=== PATIENT | male | born 1955 | race Caucasian/White ===

== ENCOUNTER 2019-09-08 17:47 | Emergency (ER) | payer BC, OTHER ==
[~2019-09-08] VITALS: Ht 182 cm; Wt 86.3 kg
[2019-09-08 18:04] LABS: BASOPHILS % (AUTO) 0 % (0-10); EOSINOPHILS # (AUTO) 0.1 10^3/uL (0.0-0.3); EOSINOPHILS % (AUTO) 1 % (0-10); HEMATOCRIT 46 % (40-54); HEMOGLOBIN 15.5 G/DL (13.3-17.7); LYMPHOCYTES # (AUTO) 1.3 X 10^3 (1.0-4.0); LYMPHOCYTES % (AUTO) 14 % (12-44); MEAN CORPUSCULAR HEMOGLOBIN 32 PG (25-34); MEAN CORPUSCULAR HGB CONC 34 G/DL (32-36); MEAN CORPUSCULAR VOLUME 95 FL (80-99); MEAN PLATELET VOLUME 10.6 FL (7.4-10.4); MONOCYTES # (AUTO) 0.9 X 10^3 (0.0-1.0); MONOCYTES % (AUTO) 10 % (0-12); NEUTROPHILS # (AUTO) 7.3 X 10^3 (1.8-7.8); NEUTROPHILS % (AUTO) 76 % (42-75); PLATELET COUNT 236 10^3/uL (130-400); RED CELL DISTRIBUTION WIDTH 13.4 % (10.0-14.5); WHITE BLOOD COUNT 9.6 10^3/uL (4.3-11.0)
[2019-09-08] MEDS ORDERED: TICA90TA PO (18:05)
[2019-09-08] MEDS ORDERED: ASPI-999 PO (18:05)
[2019-09-08] MEDS ORDERED: ESCI10TA55 PO (18:05)
[2019-09-08] MEDS ORDERED: ATOR20TA66 PO (18:05)
[2019-09-08 18:24] LABS: ALANINE AMINOTRANSFERASE 11 U/L (0-55); ALBUMIN 4.3 GM/DL (3.2-4.5); ALKALINE PHOSPHATASE 89 U/L (40-136); BILIRUBIN,TOTAL 0.9 MG/DL (0.1-1.0); BUN/CREATININE RATIO 13; CALCIUM 9.5 MG/DL (8.5-10.1); CARBON DIOXIDE 29 MMOL/L (21-32); CHLORIDE 106 MMOL/L (98-107); CREATININE SERUM 0.77 MG/DL (0.60-1.30); GFR ESTIMATED > 60; GLUCOSE 98 MG/DL (70-105); MAGNESIUM 2.2 MG/DL (1.6-2.4); POTASSIUM 3.8 MMOL/L (3.6-5.0); SODIUM 142 MMOL/L (135-145); TOTAL PROTEIN 6.8 GM/DL (6.4-8.2)
--- NOTE | 2019-09-08 18:27 | Diagnostic Imaging Report ---
EXAMINATION: Chest (PA and lateral). CLINICAL INDICATION: 63-year-old male, multiple falls, dizziness. Difficulty speaking. COMPARISON: None. FINDINGS: Heart size and mediastinal contours are unremarkable. There is no identified pneumothorax. There is no pleural effusion. There is no identified focal airspace consolidation. IMPRESSION: No identified acute cardiopulmonary abnormality. Dictated by: Dictated on workstation # [id number]
[2019-09-08] MEDS ORDERED: LACTATED RINGERS 1,000 ML IV ONE (18:30)
--- NOTE | 2019-09-08 18:38 | ED General ---
General Chief Complaint: Neuro-Stroke Like Symptoms Stated Complaint: CONFUSED, DROPPING ITEMS, WEAK, DIZZY Nursing Triage Note: PATIENTSTATES THAT TODAY HE HAS BEEN FALLING DOWN, DROPPING THINGS, CONFUSED. Nursing Sepsis Screen: No Definite Risk Source of Information: Patient, Family Exam Limitations: No Limitations History of Present Illness Date Seen by Provider: Sep 08, 2019 Time Seen by Provider: 18:15 Initial Comments Here with report of generalized weakness, has fallen a couple times, got some steps today and had periods of confusion. All of this is been worsening over the past couple weeks although worse over the last couple of days. Started with illness that was diarrheal related and he states he got quite dehydrated. A little better and diarrhea has stopped but now has weakness. He cannot identify any one specific area. Also has had some dizziness that he describes as vertigo. States that he has benign positional vertigo and that's intermittent and long- standing. Denies nausea, vomiting, chest pain or breathing problems. He smokes cigarettes. His states he section to a little better right now but definitely was having more problems earlier this evening. Timing/Duration: 1 Week, Changing Over Time, Getting Worse Severity: Mild, Moderate Associated Systoms: No Chest Pain; Cough; No Diaphoresis, No Fever/Chills, No Nausea/Vomiting, No Shortness of Air; Weakness Allergies and Home Medications Allergies Coded Allergies: No Known Drug Allergies (Unverified , 09/08/19) Home Medications Ticagrelor 90 Mg Tablet, 90 MG PO BID, (Reported) Patient Home Medication List Home Medication List Reviewed: Yes Review of Systems Review of Systems Constitutional: see HPI; No chills, No fever EENTM: No ear pain, No nose congestion, No throat pain Respiratory: cough; No short of breath Cardiovascular: No chest pain, No edema Gastrointestinal: see HPI Genitourinary: no symptoms reported Musculoskeletal: No back pain; muscle weakness; No neck pain Skin: no symptoms reported Psychiatric/Neurological: No Symptoms Reported All Other Systems Reviewed Negative Unless Noted: Yes Past Ldpvucy-Meqhnx-Omjahu Hx Past Med/Social Hx: Reviewed Nursing Past Med/Soc Hx Patient Social History Alcohol Use: Denies Use Recreational Drug Use: No Smoking Status: Current Everyday Smoker Type Used: Cigarettes 2nd Hand Smoke Exposure: Yes Recent Foreign Travel: No Contact w/Someone Who Travel: No Recent Infectious Disease Expo: No Recent Hopitalizations: No Physical Abuse: No Sexual Abuse: No Seasonal Allergies Seasonal Allergies: No Past Medical History Surgeries: Yes Coronary Stent, Vascular Surgery Respiratory: No Cardiac: Yes Coronary Artery Disease Neurological: Yes Vertigo Genitourinary: No Gastrointestinal: No Musculoskeletal: No Endocrine: No Cancer: No Psychosocial: No Integumentary: No Blood Disorders: No Family Medical History Reviewed Nursing Family Hx Physical Exam Vital Signs Vital Signs - First Documented 09/08/19 17:51 Pulse 81 Resp 20 B/P (MAP) 160/103 (122) Capillary Refill : Less Than 3 Seconds Height, Weight, BMI Height: '" Weight: lbs. oz. kg; 26.00 BMI Method: General Appearance: No Apparent Distress, WD/WN HEENT: PERRL/EOMI, Pharynx Normal Neck: Non Tender, Supple Respiratory: Lungs Clear, Normal Breath Sounds Cardiovascular: Regular Rate, Rhythm, No Murmur Gastrointestinal: Non Tender, Soft Back: Normal Inspection, No CVA Tenderness, No Vertebral Tenderness Extremity: Normal Range of Motion, Non Tender Neurologic/Psychiatric: Alert, Oriented x3, Normal Mood/Affect, cylinder grinder II-XII Norm as Tested, Other (no pronator drift to upper or lower extremities. Finger to nose appropriate but somewhat shaky on the left arm. [id number] appropriate bilateral. Sensations intact and equal throughout. Does have incomplete extension of the left hand at the wrist but has equal school cleaner strength bilateral.) Skin: Normal Color, Warm/Dry Progress/Results/Core Measures Suspected Sepsis Recent Fever Within 48 Hours: No Infection Criteria Present: None New/Unexplained Altered Menta: No Sepsis Screen: No Definite Risk SIRS Temperature: Pulse: 81 Respiratory Rate: 20 Laboratory Tests 09/08/19 18:00: White Blood Count 9.6 Blood Pressure 160 /103 Mean: 122 Laboratory Tests 09/08/19 18:00: Creatinine 0.77, Platelet Count 236, Total Bilirubin 0.9 Results/Orders Lab Results Laboratory Tests Test 09/08/19 18:00 09/08/19 18:05 09/08/19 19:39 Range/Units White Blood Count 9.6 4.3-11.0 10^3/uL Red Blood Count 4.86 4.35-5.85 10^6/uL Hemoglobin 15.5 13.3-17.7 G/DL Hematocrit 46 40-54 % Mean Corpuscular Volume 95 80-99 FL Mean Corpuscular Hemoglobin 32 25-34 PG Mean Corpuscular Hemoglobin Concent 34 32-36 G/DL Red Cell Distribution Width 13.4 10.0-14.5 % Platelet Count 236 130-400 10^3/uL Mean Platelet Volume 10.6 H 7.4-10.4 FL Neutrophils (%) (Auto) 76 H 42-75 % Lymphocytes (%) (Auto) 14 12-44 % Monocytes (%) (Auto) 10 0-12 % Eosinophils (%) (Auto) 1 0-10 % Basophils (%) (Auto) 0 0-10 % Neutrophils # (Auto) 7.3 1.8-7.8 X 10^3 Lymphocytes # (Auto) 1.3 1.0-4.0 X 10^3 Monocytes # (Auto) 0.9 0.0-1.0 X 10^3 Eosinophils # (Auto) 0.1 0.0-0.3 10^3/uL Basophils # (Auto) 0.0 0.0-0.1 10^3/uL Sodium Level 142 135-145 MMOL/L Potassium Level 3.8 3.6-5.0 MMOL/L Chloride Level 106 98-107 MMOL/L Carbon Dioxide Level 29 21-32 MMOL/L Anion Gap 7 5-14 MMOL/L Blood Urea Nitrogen 10 7-18 MG/DL Creatinine 0.77 0.60-1.30 MG/DL Estimat Glomerular Filtration Rate > 60 BUN/Creatinine Ratio 13 Glucose Level 98 70-105 MG/DL Calcium Level 9.5 8.5-10.1 MG/DL Corrected Calcium 9.3 8.5-10.1 MG/DL Magnesium Level 2.2 1.6-2.4 MG/DL Total Bilirubin 0.9 0.1-1.0 MG/DL Aspartate Amino Transf (AST/SGOT) 13 5-34 U/L Alanine Aminotransferase (ALT/SGPT) 11 0-55 U/L Alkaline Phosphatase 89 40-136 U/L Total Protein 6.8 6.4-8.2 GM/DL Albumin 4.3 3.2-4.5 GM/DL Glucometer 96 70-110 MG/DL My Orders Orders - PEEWEE ARREGUIN MD Lactated Ringers (Lr 1000 Ml Iv Solution (09/08/19 18:30) Ct Head Wo-R/O Stroke (09/08/19 18:30) Dexamethasone Injection (Decadron Inject (09/08/19 19:30) Medications Given in ED Current Medications Medications Dose Ordered Sig/Kalpana Route Start Time Stop Time Status Last Admin Dose Admin Dexamethasone Sodium Phosphate 10 mg ONCE ONCE IV 09/08/19 19:30 09/08/19 19:31 DC 09/08/19 19:38 10 MG Lactated Ringer's 1,000 ml @ 0 mls/hr Q0M ONCE IV 09/08/19 18:30 09/08/19 18:31 DC 09/08/19 18:39 1,000 MLS/HR Vital Signs/I&O 09/08/19 17:51 Pulse 81 Resp 20 B/P (MAP) 160/103 (122) Capillary Refill : Less Than 3 Seconds Blood Pressure Mean: 122 POS Point of Care Testing Finger Stick Blood Glucose: 96 Blood Glucose Action Taken: RN notified Progress Note : Progress Note Seen and evaluated. IV, labs, EKG, chest x-ray, UA ordered. LR 500 mL bolus and then TKO, and CT head ordered. Stroke screen done by me due to presenting complaints although stroke not high on differential. Stroke scale is 0. We will get CT due to global weakness and falls. 1911: Radiology notified me about mass on CT. I did discuss this with the patient and his . He will need evaluation at tertiary center and [facility] his closest with capability needed for this type of finding/concern. I will initiate contact with them. I have asked for those films to be transmitted via cloud to .1914: Initiated transfer proceedings. Initiated contact with the triage line him transfer nurse. 1925: [facility] is at capacity and may be delayed on transfer but the triage nurse will begin proceedings. I did speak with Dr. Staples and he is recommending going ahead and given Decadron 10 mg IV. This was ordered. I did have discussion with the family regarding timeframes and transfer anticipation. 1955: Triage nurse called back and I do have an accepting physician although we still don't have a bed. They are working on bed space and will call me back. I did let her know that I went ahead and gave the Decadron and she will pass it on. 2005: I have discussed with the material handler 1st shift regarding the need for transfer. We have crews out of counts include 234 beds at the [facility] already and transfer could be quite delayed from [facility]. He is recommending that we initiate trying to find alternative transport. This will be started but we are still waiting for a bed. In talking with the triage nurse earlier, she had anticipated at least 45 minutes to an hour before we were able to get information on that. That will be fine. I did discuss all this with the patient and family verbalize understanding and he is overall doing okay. Monitor patient. 2009: [facility] has stated they will be able to transport when bed is available. ECG Initial ECG Impression Date: Sep 08, 2019 Initial ECG Impression Time: 17:57 Initial ECG Rate: 82 Initial ECG Rhythm: Normal Sinus Initial ECG Impression: Normal Initial ECG Comparisson: No Previous ECG Available Comment Sinus rhythm with normal axis. No evidence of ST elevation NE. No previous for comparison. Interpreted by me. Diagnostic Imaging Diagonstic Imaging: Xray Plain Films/CT/US/NM/MRI: chest Comments [facility] POS [place], [place] POS NAME: NIKI HERNANDEZ [facility] REC#: [id number] PT STATUS: REG ER : 1955 PHYSICIAN: KERI GERARDO MD ADMIT DATE: 09/08/19/ER Signed POSDate of Exam:09/08/19 CHEST PA/LAT (2 VIEW) EXAMINATION: Chest (PA and lateral). CLINICAL INDICATION: 63-year-old male, multiple falls, dizziness. Difficulty speaking. COMPARISON: None. FINDINGS: Heart size and mediastinal contours are unremarkable. There is no identified pneumothorax. There is no pleural effusion. There is no identified focal airspace consolidation. IMPRESSION: No identified acute cardiopulmonary abnormality. Dictated by: Dictated on workstation # [id number] Dict: 09/08/191817 Trans: 09/08/191828 [facility] [id number] Interpreted by: DIDI AGUILAR MD Electronically signed by: DIDI AGUILAR MD 09/08/191828 Reviewed: Reviewed by Me Diagonstic Imaging: CT Plain Films/CT/US/NM/MRI: head Comments NAME: NIKI HERNANDEZ MED REC#: [id number] PT STATUS: REG ER : 1955 PHYSICIAN: PEEWEE ARREGUIN MD ADMIT DATE: 09/08/19/ER Draft POSDate of Exam:09/08/19 CT HEAD WO-R/O STROKE PROCEDURE: CT head wo r/o stroke. TECHNIQUE: Multiple contiguous axial images were obtained through the brain without the use of intravenous contrast. Auto Exposure Controls were utilized during the CT exam to meet ALARA standards for radiation dose reduction. INDICATION: Dizzy, weakness. CORRELATION STUDY: None FINDINGS: There is extensive vasogenic edema through the central aspect of the right cerebral hemisphere. This appears most pronounced over the temporal lobes as well as through the region of basal ganglia but extending into the frontal and parietal lobes. There is suggestion of more focal approximately 4.2 x 3.6 cm mass within the posterior lateral aspect of the right temporal lobe. This is of heterogeneous density. There is localized mass effect. Complete loss of majority of the sulci pattern of the right cerebral hemisphere. There is approximately 14 mm of right to left shift with complete effacement of the right lateral ventricle and effacement of the right basilar cisterns. IMPRESSION: 1. Findings suggestive of approximately 4 cm mass at the posterior superior right temporal lobe with rather extensive adjacent surrounding vasogenic edema. There is resultant mass effect with right to left midline shift. Follow-up with contrast-enhanced MRI would be recommended. CRITICAL FINDINGS Findings telephoned to the [place] emergency department, 7:01 PM. 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 Marley accepting. Pending bed assignment. Method of Transfer: EMS Departure-Patient Inst. Referrals: LIBORIO WONG MD (PCP/Family) Primary Care Physician PEEWEE ARREGUIN MD Sep 08, 2019 18:38 POS
--- NOTE | 2019-09-08 18:57 | NUR ---
REPORT GIVEN TO Shekhar ANNE.
--- NOTE | 2019-09-08 19:09 | Diagnostic Imaging Report ---
PROCEDURE: CT head wo r/o stroke. TECHNIQUE: Multiple contiguous axial images were obtained through the brain without the use of intravenous contrast. Auto Exposure Controls were utilized during the CT exam to meet ALARA standards for radiation dose reduction. INDICATION: Dizzy, weakness. CORRELATION STUDY: None FINDINGS: There is extensive vasogenic edema through the central aspect of the right cerebral hemisphere. This appears most pronounced over the temporal lobes as well as through the region of basal ganglia but extending into the frontal and parietal lobes. There is suggestion of more focal approximately 4.2 x 3.6 cm mass within the posterior lateral aspect of the right temporal lobe. This is of heterogeneous density. There is localized mass effect. Complete loss of majority of the sulci pattern of the right cerebral hemisphere. There is approximately 14 mm of right to left shift with complete effacement of the right lateral ventricle and effacement of the right basilar cisterns. IMPRESSION: 1. Findings suggestive of approximately 4 cm mass at the posterior superior right temporal lobe with rather extensive adjacent surrounding vasogenic edema. There is resultant mass effect with right to left midline shift. Follow-up with contrast-enhanced MRI would be recommended. CRITICAL FINDINGS Findings telephoned to the [place] emergency department, 7:01 PM. Dictated by: Dictated on workstation # [id number]
[2019-09-08] MEDS ORDERED: DEXAMETHASONE 10 MG/ML (DECADRON) 1 ML VIAL IV ONE (19:30)
--- NOTE | 2019-09-08 19:39 | NUR ---
Pt assisted to side of bed to use urinal. Pt tolerated activity well. Pt voiced no more needs at this time.
[2019-09-08 19:51] LABS: BILIRUBIN,URINE NEGATIVE (NEGATIVE); CLARITY,URINE CLEAR; COLOR,URINE DARK YELLOW; GLUCOSE, URINE (UA) NEGATIVE (NEGATIVE); KETONES,URINE TRACE (NEGATIVE); LEUKOCYTE ESTERASE ,URINE NEGATIVE (NEGATIVE); NITRITE,URINE NEGATIVE (NEGATIVE); PH,URINE 6.5 (5-9); PROTEIN,URINE NEGATIVE (NEGATIVE)
--- NOTE | 2019-09-08 20:31 | NUR ---
Room assignment recie[facility] at [facility]
[2019-09-08 20:38] LABS: BACTERIA,URINE TRACE /HPF; RBC,URINE 0-2 /HPF; WBC,URINE 0-2 /HPF
--- NOTE | 2019-09-08 20:58 | NUR ---
[facility] accepted transfer. Pt and pt family notified of update.
[2019-09-09 00:01] VITALS: BP 141/86
== END 2019-09-09 00:02 | disposition short-term general hospital (02) ==
LOC: ER 17:50
DX: D49.6 Neoplasm of unspecified behavior of brain (principal); I25.10 Atherosclerotic heart disease of native coronary artery without angina pectoris; F17.210 Nicotine dependence, cigarettes, uncomplicated; Z95.5 Presence of coronary angioplasty implant and graft
CPT/HCPCS: 36415; 70450; 71046; 80053; 81000; 82962; 83735; 85025; 93005; 96361; 96374

== ENCOUNTER → 2019-10-19 | Outpatient (CLI) | payer BC ==
[~2019-10-19] MED LIST: ASPI-999 PO; ATOR20TA66 PO; ESCI10TA55 PO; TICA90TA PO
== END ==
LOC: ONC 15:32
PROVIDERS: ATTEND Internal Medicine Cardiovascular Disease
DX: C71.2 Malignant neoplasm of temporal lobe (principal); Z72.0 Tobacco use; Z22.7 Latent tuberculosis; Z84.89 Family history of other specified conditions; Z98.890 Other specified postprocedural states

== ENCOUNTER 2019-10-25 05:45 | Emergency (ER) | payer BC ==
[~2019-10-25] VITALS: Ht 182.8 cm; Wt 88.9 kg
[2019-10-25 06:15] LABS: BASOPHILS % (AUTO) 0 % (0-10); EOSINOPHILS # (AUTO) 0.1 10^3/uL (0.0-0.3); EOSINOPHILS % (AUTO) 1 % (0-10); HEMATOCRIT 44 % (40-54); HEMOGLOBIN 14.6 G/DL (13.3-17.7); LYMPHOCYTES % (AUTO) 18 % (12-44); MEAN CORPUSCULAR HEMOGLOBIN 32 PG (25-34); MEAN CORPUSCULAR HGB CONC 33 G/DL (32-36); MEAN CORPUSCULAR VOLUME 99 FL (80-99); MEAN PLATELET VOLUME 10.5 FL (7.4-10.4); MONOCYTES % (AUTO) 9 % (0-12); NEUTROPHILS # (AUTO) 7.9 X 10^3 (1.8-7.8); NEUTROPHILS % (AUTO) 71 % (42-75); PLATELET COUNT 197 10^3/uL (130-400); RED CELL DISTRIBUTION WIDTH 14.2 % (10.0-14.5); WHITE BLOOD COUNT 11.1 10^3/uL (4.3-11.0)
[2019-10-25] MEDS ORDERED: KETOROLAC 30 MG/ML VIAL IVP ONE (06:15)
[2019-10-25] MEDS ORDERED: ONDANSETRON 4 MG/2 ML (SDV) Z0FRAN IVP ONE (06:15)
[2019-10-25] MEDS ORDERED: NS IV 1000 ML 1,000 ML IV SCH (06:15)
--- NOTE | 2019-10-25 06:17 | ED Abdominal Pain ---
General Chief Complaint: Abdominal/GI Problems Stated Complaint: ABDOMINAL PAIN/VOMITING Nursing Triage Note: Patient states that he began having severe abdominal pain with nausea and vomiting at approximately 0315 this AM. Patient states that they did find a 3.9 cm abdominal aortic aneurysm. He also states that he is supposed to start chemo and radiation on 10-28-2019 for a cancerous tumor they found. He had a brain tumor removed on 09-14-19. Patient rates his pain 10 and his pain is on the left side of his abdomen. Sepsis Screen: No Definite Risk History of Present Illness Date Seen by Provider: Oct 25, 2019 Time Seen by Provider: 06:00 Initial Comments Patient's sudden onset of abdominal pain about 3:30 this morning previous history of kidney stone pain like this does have a history of an aortic aneurysm 3.9 cm also glioblastoma of the head stent's smoker nondiabetic is hypertensive Timing/Duration: 1-3 Hours Severity/Quality: Severe Location: LLQ Radiation: Groin Activities at Onset: None Modifying Factors: Worsens With Movement, Worsens With Vomiting Associated Symptoms: No Fever/Chills; Fatigue, Nausea/Vomiting, Weakness Allergies and Home Medications Allergies Coded Allergies: midazolam (Verified Allergy, Unknown, 10/25/19) Home Medications Ticagrelor 90 Mg Tablet, 90 MG PO BID, (Reported) Patient Home Medication List Home Medication List Reviewed: Yes Review of Systems Review of Systems Constitutional: No chills, No fever EENTM: No Blurred Vision, No Double Vision Respiratory: Denies Cough, Denies Shortness of Air Cardiovascular: Denies Chest Pain, Denies Irregular Heart Rate Gastrointestinal: Abdominal Pain; Denies Diarrhea; Nausea, Vomiting Genitourinary: Denies Burning, Denies Hematuria Musculoskeletal: No back pain, No joint pain, No joint swelling Skin: No lesions, No rash Past Iodpumg-Qwxnno-Casjzh Hx Past Med/Social Hx: Reviewed Nursing Past Med/Soc Hx Patient Social History Alcohol Use: Denies Use Recreational Drug Use: No Smoking Status: Current Everyday Smoker Type Used: Cigarettes 2nd Hand Smoke Exposure: Yes Recent Foreign Travel: No Contact w/Someone Who Travel: No Recent Infectious Disease Expo: No Recent Hopitalizations: No Physical Abuse: No Sexual Abuse: No Mistreated: No Fear: No Seasonal Allergies Seasonal Allergies: No Past Medical History Surgeries: Yes (Brain Tumor Removed 09-14-19, Cardiac Stent X5) Coronary Stent, Vascular Surgery Respiratory: No Cardiac: Yes (TX X2) Coronary Artery Disease, Heart Attack Neurological: Yes Vertigo Genitourinary: Yes Kidney Stones Gastrointestinal: No Musculoskeletal: No Endocrine: No HEENT: No Cancer: Yes Brain What Type of Treatment Did You: Chemotherapy, Radiation Supposed to start chemo/radiation 10-28-2019 Psychosocial: No Integumentary: No Blood Disorders: No Physical Exam Vital Signs Vital Signs - First Documented 10/25/19 05:51 Temp 36.7 Pulse 73 Resp 22 B/P (MAP) 219/103 (141) Pulse Ox 99 O2 Delivery Room Air Capillary Refill : Less Than 3 Seconds Height/Weight/BMI Height: '" Weight: lbs. oz. kg; 26.00 BMI Method: General Appearance: WD/WN, moderate distress HEENT: TMs normal, pharynx normal Neck: non-tender, supple Respiratory: lungs clear, no respiratory distress Cardiovascular: regular rate, rhythm, no murmur Gastrointestinal: No no pulsatile mass; abnormal bowel sounds (diminished); No guarding, No rebound; tenderness Extremities: normal range of motion, no pedal edema Back: No no CVA tenderness, No muscle spasm Skin: normal color, warm/dry Progress/Results/Core Measures Results/Orders Lab Results Laboratory Tests Test 10/25/19 05:57 10/25/19 06:18 Range/Units White Blood Count 11.1 H 4.3-11.0 10^3/uL Red Blood Count 4.50 4.35-5.85 10^6/uL Hemoglobin 14.6 13.3-17.7 G/DL Hematocrit 44 40-54 % Mean Corpuscular Volume 99 80-99 FL Mean Corpuscular Hemoglobin 32 25-34 PG Mean Corpuscular Hemoglobin Concent 33 32-36 G/DL Red Cell Distribution Width 14.2 10.0-14.5 % Platelet Count 197 130-400 10^3/uL Mean Platelet Volume 10.5 H 7.4-10.4 FL Neutrophils (%) (Auto) 71 42-75 % Lymphocytes (%) (Auto) 18 12-44 % Monocytes (%) (Auto) 9 0-12 % Eosinophils (%) (Auto) 1 0-10 % Basophils (%) (Auto) 0 0-10 % Neutrophils # (Auto) 7.9 H 1.8-7.8 X 10^3 Lymphocytes # (Auto) 2.0 1.0-4.0 X 10^3 Monocytes # (Auto) 1.0 0.0-1.0 X 10^3 Eosinophils # (Auto) 0.1 0.0-0.3 10^3/uL Basophils # (Auto) 0.0 0.0-0.1 10^3/uL Neutrophils % (Manual) 73 % Lymphocytes % (Manual) 17 % Monocytes % (Manual) 8 % Eosinophils % (Manual) 2 % Sodium Level 142 135-145 MMOL/L Potassium Level 3.8 3.6-5.0 MMOL/L Chloride Level 105 98-107 MMOL/L Carbon Dioxide Level 22 21-32 MMOL/L Anion Gap 15 H 5-14 MMOL/L Blood Urea Nitrogen 19 H 7-18 MG/DL Creatinine 0.88 0.60-1.30 MG/DL Estimat Glomerular Filtration Rate > 60 BUN/Creatinine Ratio 22 Glucose Level 129 H 70-105 MG/DL Calcium Level 9.1 8.5-10.1 MG/DL Corrected Calcium 9.0 8.5-10.1 MG/DL Total Bilirubin 0.5 0.1-1.0 MG/DL Aspartate Amino Transf (AST/SGOT) 17 5-34 U/L Alanine Aminotransferase (ALT/SGPT) 13 0-55 U/L Alkaline Phosphatase 71 40-136 U/L Total Protein 6.4 6.4-8.2 GM/DL Albumin 4.1 3.2-4.5 GM/DL Urine Color YELLOW Urine Clarity CLEAR Urine pH 7.0 5-9 Urine Specific [place] 1.020 1.016-1.022 Urine Protein NEGATIVE NEGATIVE Urine Glucose (UA) NEGATIVE NEGATIVE Urine Ketones TRACE H NEGATIVE Urine Nitrite NEGATIVE NEGATIVE Urine Bilirubin NEGATIVE NEGATIVE Urine Urobilinogen 0.2 < = 1.0 MG/DL Urine Leukocyte Esterase NEGATIVE NEGATIVE Urine RBC (Auto) TRACE-I NEGATIVE Urine RBC 5-10 H /HPF Urine WBC NONE /HPF Urine Crystals NONE /LPF Urine Bacteria NEGATIVE /HPF Urine Casts NONE /LPF Urine Mucus NEGATIVE /LPF Urine Culture Indicated NO My Orders Orders - CLARITA MUÑIZ JR, MD Cbc And Manual Diff (10/25/19 06:10) Comprehensive Metabolic Panel (10/25/19 06:10) Ua Culture If Indicated (1/6/20 06:10) Ns Iv 1000 Ml (Sodium Chloride 0.9%) (10/25/19 06:15) Ketorolac Injection (Toradol Injection) (10/25/19 06:15) Ondansetron Injection (Zofran Injectio (10/25/19 06:15) Ct Abd/Pelvis Wo(Kidney Stone) (10/25/19 06:11) Medications Given in ED Current Medications Medications Dose Ordered Sig/Kalpana Route Start Time Stop Time Status Last Admin Dose Admin Ketorolac Tromethamine 30 mg ONCE ONCE IVP 10/25/19 06:15 10/25/19 06:16 DC 10/25/19 06:17 30 MG Ondansetron HCl 4 mg ONCE ONCE IVP 10/25/19 06:15 10/25/19 06:16 DC 10/25/19 06:17 4 MG Vital Signs/I&O 10/25/19 05:51 Temp 36.7 Pulse 73 Resp 22 B/P (MAP) 219/103 (141) Pulse Ox 99 O2 Delivery Room Air Blood Pressure Mean: 141 Progress Progress Note : Time: 07:23 Progress Note Patient became pain-free shortly after the Toradol small stone at UVJ which obviously is passed and the patient is without problem Departure Impression Primary Impression: Kidney stone Disposition: 01 HOME, SELF-CARE Condition: Stable Departure-Patient Inst. Referrals: SELF,LIBORIO DE JESUS (PCP/Family) Primary Care Physician Patient Instructions: Kidney Stones in Adults CLARITA MUÑIZ JR, MD Oct 25, 2019 06:17
[2019-10-25 06:23] LABS: ALANINE AMINOTRANSFERASE 13 U/L (0-55); ALBUMIN 4.1 GM/DL (3.2-4.5); ALKALINE PHOSPHATASE 71 U/L (40-136); BILIRUBIN,TOTAL 0.5 MG/DL (0.1-1.0); BUN/CREATININE RATIO 22; CALCIUM 9.1 MG/DL (8.5-10.1); CARBON DIOXIDE 22 MMOL/L (21-32); CHLORIDE 105 MMOL/L (98-107); CREATININE SERUM 0.88 MG/DL (0.60-1.30); GFR ESTIMATED > 60; GLUCOSE 129 MG/DL (70-105); POTASSIUM 3.8 MMOL/L (3.6-5.0); SODIUM 142 MMOL/L (135-145); TOTAL PROTEIN 6.4 GM/DL (6.4-8.2)
[2019-10-25 06:24] LABS: EOSINOPHILS % (MANUAL) 2 %; LYMPHOCYTES % (MANUAL) 17 %; MONOCYTES % (MANUAL) 8 %; NEUTROPHILS % (MANUAL) 73 %
[2019-10-25 06:29] LABS: BACTERIA,URINE NEGATIVE /HPF; BILIRUBIN,URINE NEGATIVE (NEGATIVE); CLARITY,URINE CLEAR; COLOR,URINE YELLOW; GLUCOSE, URINE (UA) NEGATIVE (NEGATIVE); KETONES,URINE TRACE (NEGATIVE); LEUKOCYTE ESTERASE ,URINE NEGATIVE (NEGATIVE); NITRITE,URINE NEGATIVE (NEGATIVE); PROTEIN,URINE NEGATIVE (NEGATIVE)
--- NOTE | 2019-10-25 06:55 | NUR ---
Report from Jacinta ANNE. Pending results. Improvement of pain.
--- NOTE | 2019-10-25 07:07 | Diagnostic Imaging Report ---
PROCEDURE: CT urinary tract, rule out kidney stone. TECHNIQUE: Multiple contiguous axial images were obtained through the abdomen and pelvis without the use of intravenous contrast. Auto Exposure Controls were utilized during the CT exam to meet ALARA standards for radiation dose reduction. DATE: April 14, 2020. COMPARISON: None. INDICATION: 63-year-old male, left-sided abdominal pain. FINDINGS: There are limitations for evaluation of the abdominal organs, neoplastic processes, abscess, and limited evaluation of the vasculature relating to the lack of intravenous contrast. There is mild scarring in the right lower lobe and mild scarring and/or atelectasis in the left lower lobe. The additional visualized portions of the lung bases are clear. The heart is not enlarged. There is no pericardial effusion. The liver is unremarkable in size and contour. There is a 5 mm low-attenuation lesion in the liver on axial image 25 which is too small to characterize. There is a 5 mm low-attenuation lesion in the right lobe of the liver on axial image 44 too small to characterize. There is also a similar-appearing lesion in the right lobe of the liver on axial image 42 too small to characterize. The gallbladder is unremarkable. There is no intrahepatic or extrahepatic bile duct dilation. The main pancreatic duct is not abnormally dilated. Limited noncontrast evaluation of the pancreatic parenchyma is unremarkable. The spleen is normal in size. The adrenal glands are unremarkable. There are nonobstructing left renal stones measuring up to approximately 2 to 3 mm in size. There is a stone at the level of the left ureterovesical junction on axial image 121 which measures 3 mm in size. There is no philip left hydronephrosis. There is asymmetric left perinephric stranding. There is no right ureteral stone or right hydronephrosis. There is no pronounced wall thickening of the urinary bladder. There is diverticulosis without evidence of acute diverticulitis. The appendix is unremarkable. There is moderate to large volume stool in the right colon. There is no free intraperitoneal air. No drainable fluid collection. There is no sizable volume free pelvic fluid. There are atherosclerotic calcifications. There is aneurysmal dilation of the infrarenal abdominal aorta measuring up to 3.7 x 3.9 cm in diameter. There is no identified abnormally enlarged lymph node in the abdomen or pelvis which meets CT size criteria for adenopathy. There are multilevel degenerative changes of the spine. There is no identified acute bony abnormality. IMPRESSION: CT ABDOMEN AND PELVIS. 1. 3 mm stone at the left ureterovesical junction without philip left hydronephrosis. There is asymmetric left perinephric stranding. 2. Additional nonobstructing left renal stones. 3. Atherosclerotic calcifications with infrarenal abdominal aortic aneurysm measuring up to 3.7 x 3.9 cm in diameter. Dictated by: Dictated on workstation # [id number]
--- NOTE | 2019-10-25 07:20 | NUR ---
Dr to room to talk with patient.
[2019-10-25 07:35] VITALS: BP 160/100
[2019-10-25] MEDS ORDERED: DIVA250T2 PO (10:10)
[2019-10-25] MEDS ORDERED: ATOR40TA70 PO (10:10)
[2019-10-25] MEDS ORDERED: LISI10TA2 PO (10:10)
[2019-10-25] MEDS ORDERED: PANT40TA2 PO (10:10)
[2019-10-25] MEDS ORDERED: LEVE500T99 PO (10:10)
[2019-10-25] MEDS ORDERED: ONDA8TAB6 PO (10:10)
== END 2019-10-25 07:35 | disposition home or self-care (01) ==
LOC: EDUNIT# 05:45 → ER FS 05:48
DX: N20.0 Calculus of kidney (principal); I25.10 Atherosclerotic heart disease of native coronary artery without angina pectoris; I25.2 Old myocardial infarction; F17.210 Nicotine dependence, cigarettes, uncomplicated; Z88.8 Allergy status to other drugs, medicaments and biological substances; Z95.5 Presence of coronary angioplasty implant and graft
CPT/HCPCS: 36415; 74176; 80053; 81000; 85007; 85027; 96374; 96375

== ENCOUNTER 2019-12-09 10:35 | Outpatient (RCR) | payer BC ==
[2019-10-19 15:47] LABS: BASOPHILS % (AUTO) 0 % (0-10); EOSINOPHILS # (AUTO) 0.2 10^3/uL (0.0-0.3); EOSINOPHILS % (AUTO) 2 % (0-10); HEMATOCRIT 46 % (40-54); LYMPHOCYTES # (AUTO) 1.6 X 10^3 (1.0-4.0); LYMPHOCYTES % (AUTO) 21 % (12-44); MEAN CORPUSCULAR HEMOGLOBIN 32 PG (25-34); MEAN CORPUSCULAR HGB CONC 33 G/DL (32-36); MEAN CORPUSCULAR VOLUME 98 FL (80-99); MEAN PLATELET VOLUME 10.6 FL (7.4-10.4); MONOCYTES # (AUTO) 0.7 X 10^3 (0.0-1.0); MONOCYTES % (AUTO) 10 % (0-12); NEUTROPHILS # (AUTO) 4.9 X 10^3 (1.8-7.8); NEUTROPHILS % (AUTO) 67 % (42-75); PLATELET COUNT 193 10^3/uL (130-400); RED CELL DISTRIBUTION WIDTH 14.5 % (10.0-14.5); WHITE BLOOD COUNT 7.4 10^3/uL (4.3-11.0)
[2019-10-19 16:24] LABS: ALANINE AMINOTRANSFERASE 17 U/L (0-55); ALBUMIN 4.2 GM/DL (3.2-4.5); ALKALINE PHOSPHATASE 73 U/L (40-136); BILIRUBIN,TOTAL 0.8 MG/DL (0.1-1.0); BUN/CREATININE RATIO 20; CALCIUM 8.9 MG/DL (8.5-10.1); CARBON DIOXIDE 26 MMOL/L (21-32); CHLORIDE 106 MMOL/L (98-107); CREATININE SERUM 0.74 MG/DL (0.60-1.30); GFR ESTIMATED > 60; GLUCOSE 75 MG/DL (70-105); POTASSIUM 4.1 MMOL/L (3.6-5.0); SODIUM 142 MMOL/L (135-145); TOTAL PROTEIN 6.3 GM/DL (6.4-8.2)
[2019-11-10 11:18] LABS: BASOPHILS % (AUTO) 1 % (0-10); EOSINOPHILS # (AUTO) 0.1 10^3/uL (0.0-0.3); EOSINOPHILS % (AUTO) 2 % (0-10); HEMATOCRIT 47 % (40-54); HEMOGLOBIN 15.1 G/DL (13.3-17.7); LYMPHOCYTES # (AUTO) 1.1 X 10^3 (1.0-4.0); LYMPHOCYTES % (AUTO) 17 % (12-44); MEAN CORPUSCULAR HEMOGLOBIN 32 PG (25-34); MEAN CORPUSCULAR HGB CONC 32 G/DL (32-36); MEAN CORPUSCULAR VOLUME 99 FL (80-99); MONOCYTES # (AUTO) 0.6 X 10^3 (0.0-1.0); MONOCYTES % (AUTO) 8 % (0-12); NEUTROPHILS # (AUTO) 4.9 X 10^3 (1.8-7.8); NEUTROPHILS % (AUTO) 73 % (42-75); PLATELET COUNT 193 10^3/uL (130-400); RED CELL DISTRIBUTION WIDTH 14.6 % (10.0-14.5); WHITE BLOOD COUNT 6.7 10^3/uL (4.3-11.0)
[2019-11-10 11:44] LABS: BUN/CREATININE RATIO 14; CARBON DIOXIDE 25 MMOL/L (21-32); CHLORIDE 108 MMOL/L (98-107); CREATININE SERUM 0.87 MG/DL (0.60-1.30); GFR ESTIMATED > 60; GLUCOSE 96 MG/DL (70-105); POTASSIUM 4.1 MMOL/L (3.6-5.0); SODIUM 142 MMOL/L (135-145)
[2019-11-18 08:53] LABS: BASOPHILS % (AUTO) 1 % (0-10); EOSINOPHILS # (AUTO) 0.2 10^3/uL (0.0-0.3); EOSINOPHILS % (AUTO) 4 % (0-10); HEMATOCRIT 48 % (40-54); HEMOGLOBIN 15.9 G/DL (13.3-17.7); LYMPHOCYTES # (AUTO) 1.1 X 10^3 (1.0-4.0); LYMPHOCYTES % (AUTO) 20 % (12-44); MEAN CORPUSCULAR HEMOGLOBIN 33 PG (25-34); MEAN CORPUSCULAR HGB CONC 33 G/DL (32-36); MEAN CORPUSCULAR VOLUME 99 FL (80-99); MEAN PLATELET VOLUME 11.2 FL (7.4-10.4); MONOCYTES # (AUTO) 0.6 X 10^3 (0.0-1.0); MONOCYTES % (AUTO) 11 % (0-12); NEUTROPHILS # (AUTO) 3.5 X 10^3 (1.8-7.8); NEUTROPHILS % (AUTO) 65 % (42-75); PLATELET COUNT 199 10^3/uL (130-400); RED CELL DISTRIBUTION WIDTH 14.5 % (10.0-14.5); WHITE BLOOD COUNT 5.4 10^3/uL (4.3-11.0)
[2019-11-18 09:16] LABS: ALANINE AMINOTRANSFERASE 19 U/L (0-55); ALBUMIN 4.2 GM/DL (3.2-4.5); ALKALINE PHOSPHATASE 64 U/L (40-136); BILIRUBIN,TOTAL 1.1 MG/DL (0.1-1.0); BUN/CREATININE RATIO 15; CALCIUM 9.1 MG/DL (8.5-10.1); CARBON DIOXIDE 23 MMOL/L (21-32); CHLORIDE 109 MMOL/L (98-107); CREATININE SERUM 0.81 MG/DL (0.60-1.30); GFR ESTIMATED > 60; GLUCOSE 86 MG/DL (70-105); POTASSIUM 4.4 MMOL/L (3.6-5.0); SODIUM 142 MMOL/L (135-145); TOTAL PROTEIN 6.4 GM/DL (6.4-8.2)
[2019-11-24 10:39] LABS: BASOPHILS % (AUTO) 1 % (0-10); EOSINOPHILS # (AUTO) 0.2 10^3/uL (0.0-0.3); EOSINOPHILS % (AUTO) 3 % (0-10); HEMATOCRIT 46 % (40-54); HEMOGLOBIN 14.9 G/DL (13.3-17.7); LYMPHOCYTES # (AUTO) 0.9 X 10^3 (1.0-4.0); LYMPHOCYTES % (AUTO) 15 % (12-44); MEAN CORPUSCULAR HEMOGLOBIN 32 PG (25-34); MEAN CORPUSCULAR HGB CONC 32 G/DL (32-36); MEAN CORPUSCULAR VOLUME 100 FL (80-99); MEAN PLATELET VOLUME 11.3 FL (7.4-10.4); MONOCYTES # (AUTO) 0.6 X 10^3 (0.0-1.0); MONOCYTES % (AUTO) 10 % (0-12); NEUTROPHILS # (AUTO) 4.2 X 10^3 (1.8-7.8); NEUTROPHILS % (AUTO) 72 % (42-75); PLATELET COUNT 198 10^3/uL (130-400); RED CELL DISTRIBUTION WIDTH 14.3 % (10.0-14.5); WHITE BLOOD COUNT 5.8 10^3/uL (4.3-11.0)
[2019-11-24 10:57] LABS: BUN/CREATININE RATIO 18; CALCIUM 8.7 MG/DL (8.5-10.1); CARBON DIOXIDE 27 MMOL/L (21-32); CHLORIDE 107 MMOL/L (98-107); CREATININE SERUM 0.83 MG/DL (0.60-1.30); GFR ESTIMATED > 60; GLUCOSE 92 MG/DL (70-105); POTASSIUM 4.3 MMOL/L (3.6-5.0); SODIUM 142 MMOL/L (135-145)
[2019-12-02 11:12] LABS: BASOPHILS % (AUTO) 1 % (0-10); EOSINOPHILS # (AUTO) 0.1 10^3/uL (0.0-0.3); EOSINOPHILS % (AUTO) 2 % (0-10); HEMATOCRIT 47 % (40-54); HEMOGLOBIN 15.3 G/DL (13.3-17.7); LYMPHOCYTES # (AUTO) 0.8 X 10^3 (1.0-4.0); LYMPHOCYTES % (AUTO) 12 % (12-44); MEAN CORPUSCULAR HEMOGLOBIN 32 PG (25-34); MEAN CORPUSCULAR HGB CONC 33 G/DL (32-36); MEAN CORPUSCULAR VOLUME 98 FL (80-99); MEAN PLATELET VOLUME 11.3 FL (7.4-10.4); MONOCYTES # (AUTO) 0.5 X 10^3 (0.0-1.0); MONOCYTES % (AUTO) 8 % (0-12); NEUTROPHILS % (AUTO) 78 % (42-75); PLATELET COUNT 167 10^3/uL (130-400); RED CELL DISTRIBUTION WIDTH 14.2 % (10.0-14.5); WHITE BLOOD COUNT 6.4 10^3/uL (4.3-11.0)
[2019-12-02 11:28] LABS: BUN/CREATININE RATIO 15; CALCIUM 8.9 MG/DL (8.5-10.1); CARBON DIOXIDE 27 MMOL/L (21-32); CHLORIDE 104 MMOL/L (98-107); CREATININE SERUM 0.78 MG/DL (0.60-1.30); GFR ESTIMATED > 60; GLUCOSE 105 MG/DL (70-105); POTASSIUM 4.1 MMOL/L (3.6-5.0); SODIUM 139 MMOL/L (135-145)
[2019-12-08 10:45] LABS: BASOPHILS % (AUTO) 1 % (0-10); EOSINOPHILS # (AUTO) 0.1 10^3/uL (0.0-0.3); EOSINOPHILS % (AUTO) 2 % (0-10); HEMATOCRIT 46 % (40-54); LYMPHOCYTES # (AUTO) 0.6 X 10^3 (1.0-4.0); LYMPHOCYTES % (AUTO) 11 % (12-44); MEAN CORPUSCULAR HEMOGLOBIN 32 PG (25-34); MEAN CORPUSCULAR HGB CONC 33 G/DL (32-36); MEAN CORPUSCULAR VOLUME 98 FL (80-99); MONOCYTES # (AUTO) 0.6 X 10^3 (0.0-1.0); MONOCYTES % (AUTO) 10 % (0-12); NEUTROPHILS # (AUTO) 4.4 X 10^3 (1.8-7.8); NEUTROPHILS % (AUTO) 77 % (42-75); PLATELET COUNT 169 10^3/uL (130-400); WHITE BLOOD COUNT 5.7 10^3/uL (4.3-11.0)
[2019-12-08 11:07] LABS: BUN/CREATININE RATIO 12; CALCIUM 8.7 MG/DL (8.5-10.1); CARBON DIOXIDE 26 MMOL/L (21-32); CHLORIDE 105 MMOL/L (98-107); CREATININE SERUM 0.81 MG/DL (0.60-1.30); GFR ESTIMATED > 60; GLUCOSE 103 MG/DL (70-105); POTASSIUM 3.9 MMOL/L (3.6-5.0); SODIUM 141 MMOL/L (135-145)
[~2019-12-09 10:35] MED LIST changes: +ATOR40TA70 PO; +DIVA250T2 PO; +LEVE500T99 PO; +LISI10TA2 PO; +ONDA8TAB6 PO; +PANT40TA2 PO
== END 2020-01-04 | disposition home or self-care (01) ==
LOC: ONC 10:35
PROVIDERS: ATTEND Internal Medicine Hematology & Oncology
DX: Z51.0 Encounter for antineoplastic radiation therapy (principal); C71.9 Malignant neoplasm of brain, unspecified; Z22.7 Latent tuberculosis; E78.00 Pure hypercholesterolemia, unspecified; I11.9 Hypertensive heart disease without heart failure; I51.9 Heart disease, unspecified; Z87.891 Personal history of nicotine dependence
CPT/HCPCS: 77300; 77301; 77334; 77336; 77338; 77386; 77470; 80048; 80053; 85025; 99204; 99213; 99214

== ENCOUNTER → 2020-01-27 | Outpatient (CLI) | payer BC ==
[2020-01-27 15:19] LABS: CHLORIDE 106 MMOL/L (98-107); POTASSIUM 3.9 MMOL/L (3.6-5.0); SODIUM 140 MMOL/L (135-145)
[2020-01-27 15:20] LABS: ALBUMIN 4.3 GM/DL (3.2-4.5)
[2020-01-27 15:21] LABS: CALCIUM 9.1 MG/DL (8.5-10.1); TRIGLYCERIDES 66 MG/DL (<150); VLDL CHOLESTEROL 13 MG/DL (5-40)
[2020-01-27 15:22] LABS: GLUCOSE 105 MG/DL (70-105); TOTAL PROTEIN 6.7 GM/DL (6.4-8.2)
[2020-01-27 15:23] LABS: CARBON DIOXIDE 24 MMOL/L (21-32)
[2020-01-27 15:24] LABS: BILIRUBIN,TOTAL 1.3 MG/DL (0.1-1.0)
[2020-01-27 15:26] LABS: ALKALINE PHOSPHATASE 78 U/L (40-136); CHOLESTEROL 149 MG/DL (< 200); CREATININE SERUM 0.89 MG/DL (0.60-1.30); GFR ESTIMATED > 60
[2020-01-27 15:27] LABS: BUN/CREATININE RATIO 13
[2020-01-27 15:28] LABS: HDL CHOLESTEROL 46 MG/DL (40-60)
[2020-01-27 15:29] LABS: ALANINE AMINOTRANSFERASE 21 U/L (0-55)
== END ==
LOC: LAB 14:33
PROVIDERS: ATTEND Internal Medicine Cardiovascular Disease
DX: I10 Essential (primary) hypertension (principal); E78.2 Mixed hyperlipidemia
CPT/HCPCS: 36415; 80053; 80061

== ENCOUNTER 2020-03-08 10:42 | Outpatient (RCR) | payer BC ==
[2020-01-05 15:44] LABS: BASOPHILS % (AUTO) 0 % (0-10); EOSINOPHILS # (AUTO) 0.1 10^3/uL (0.0-0.3); EOSINOPHILS % (AUTO) 1 % (0-10); HEMATOCRIT 45 % (40-54); HEMOGLOBIN 15.4 G/DL (13.3-17.7); LYMPHOCYTES # (AUTO) 0.8 X 10^3 (1.0-4.0); LYMPHOCYTES % (AUTO) 13 % (12-44); MEAN CORPUSCULAR HEMOGLOBIN 33 PG (25-34); MEAN CORPUSCULAR HGB CONC 35 G/DL (32-36); MEAN CORPUSCULAR VOLUME 96 FL (80-99); MEAN PLATELET VOLUME 10.4 FL (7.4-10.4); MONOCYTES # (AUTO) 0.7 X 10^3 (0.0-1.0); MONOCYTES % (AUTO) 10 % (0-12); NEUTROPHILS % (AUTO) 76 % (42-75); PLATELET COUNT 129 10^3/uL (130-400); RED CELL DISTRIBUTION WIDTH 13.3 % (10.0-14.5); WHITE BLOOD COUNT 6.5 10^3/uL (4.3-11.0)
[2020-01-05 16:01] LABS: ALANINE AMINOTRANSFERASE 15 U/L (0-55); ALBUMIN 4.2 GM/DL (3.2-4.5); ALKALINE PHOSPHATASE 67 U/L (40-136); BILIRUBIN,TOTAL 0.8 MG/DL (0.1-1.0); BUN/CREATININE RATIO 16; CALCIUM 9.1 MG/DL (8.5-10.1); CARBON DIOXIDE 28 MMOL/L (21-32); CHLORIDE 107 MMOL/L (98-107); CREATININE SERUM 0.91 MG/DL (0.60-1.30); GFR ESTIMATED > 60; GLUCOSE 87 MG/DL (70-105); POTASSIUM 3.9 MMOL/L (3.6-5.0); SODIUM 142 MMOL/L (135-145); TOTAL PROTEIN 6.6 GM/DL (6.4-8.2)
[2020-01-27 15:03] LABS: BASOPHILS % (AUTO) 0 % (0-10); EOSINOPHILS # (AUTO) 0.1 10^3/uL (0.0-0.3); EOSINOPHILS % (AUTO) 2 % (0-10); HEMATOCRIT 48 % (40-54); LYMPHOCYTES # (AUTO) 0.7 X 10^3 (1.0-4.0); LYMPHOCYTES % (AUTO) 10 % (12-44); MEAN CORPUSCULAR HEMOGLOBIN 33 PG (25-34); MEAN CORPUSCULAR HGB CONC 33 G/DL (32-36); MEAN CORPUSCULAR VOLUME 98 FL (80-99); MEAN PLATELET VOLUME 10.6 FL (7.4-10.4); MONOCYTES # (AUTO) 0.6 X 10^3 (0.0-1.0); MONOCYTES % (AUTO) 9 % (0-12); NEUTROPHILS # (AUTO) 5.1 X 10^3 (1.8-7.8); NEUTROPHILS % (AUTO) 79 % (42-75); PLATELET COUNT 146 10^3/uL (130-400); RED CELL DISTRIBUTION WIDTH 13.7 % (10.0-14.5); WHITE BLOOD COUNT 6.4 10^3/uL (4.3-11.0)
[2020-02-02 14:26] LABS: BASOPHILS % (AUTO) 0 % (0-10); EOSINOPHILS # (AUTO) 0.1 10^3/uL (0.0-0.3); EOSINOPHILS % (AUTO) 2 % (0-10); HEMATOCRIT 45 % (40-54); HEMOGLOBIN 15.1 G/DL (13.3-17.7); LYMPHOCYTES # (AUTO) 1.1 X 10^3 (1.0-4.0); LYMPHOCYTES % (AUTO) 19 % (12-44); MEAN CORPUSCULAR HEMOGLOBIN 33 PG (25-34); MEAN CORPUSCULAR HGB CONC 33 G/DL (32-36); MEAN CORPUSCULAR VOLUME 98 FL (80-99); MEAN PLATELET VOLUME 10.2 FL (7.4-10.4); MONOCYTES # (AUTO) 0.6 X 10^3 (0.0-1.0); MONOCYTES % (AUTO) 11 % (0-12); NEUTROPHILS % (AUTO) 68 % (42-75); PLATELET COUNT 163 10^3/uL (130-400); RED CELL DISTRIBUTION WIDTH 13.3 % (10.0-14.5); WHITE BLOOD COUNT 5.8 10^3/uL (4.3-11.0)
[2020-02-09 11:06] LABS: BASOPHILS % (AUTO) 0 % (0-10); EOSINOPHILS # (AUTO) 0.1 10^3/uL (0.0-0.3); EOSINOPHILS % (AUTO) 2 % (0-10); HEMATOCRIT 45 % (40-54); HEMOGLOBIN 14.8 G/DL (13.3-17.7); LYMPHOCYTES # (AUTO) 0.8 X 10^3 (1.0-4.0); LYMPHOCYTES % (AUTO) 14 % (12-44); MEAN CORPUSCULAR HEMOGLOBIN 33 PG (25-34); MEAN CORPUSCULAR HGB CONC 33 G/DL (32-36); MEAN CORPUSCULAR VOLUME 98 FL (80-99); MEAN PLATELET VOLUME 10.5 FL (7.4-10.4); MONOCYTES # (AUTO) 0.5 X 10^3 (0.0-1.0); MONOCYTES % (AUTO) 8 % (0-12); NEUTROPHILS # (AUTO) 4.1 X 10^3 (1.8-7.8); NEUTROPHILS % (AUTO) 75 % (42-75); PLATELET COUNT 127 10^3/uL (130-400); RED CELL DISTRIBUTION WIDTH 13.2 % (10.0-14.5); WHITE BLOOD COUNT 5.5 10^3/uL (4.3-11.0)
[2020-02-09 11:38] LABS: ALANINE AMINOTRANSFERASE 16 U/L (0-55); ALBUMIN 3.8 GM/DL (3.2-4.5); ALKALINE PHOSPHATASE 72 U/L (40-136); BILIRUBIN,TOTAL 0.7 MG/DL (0.1-1.0); BUN/CREATININE RATIO 19; CALCIUM 8.5 MG/DL (8.5-10.1); CARBON DIOXIDE 23 MMOL/L (21-32); CHLORIDE 108 MMOL/L (98-107); CREATININE SERUM 0.79 MG/DL (0.60-1.30); GFR ESTIMATED > 60; GLUCOSE 107 MG/DL (70-105); SODIUM 141 MMOL/L (135-145); TOTAL PROTEIN 5.9 GM/DL (6.4-8.2)
[2020-02-23 13:13] LABS: BASOPHILS % (AUTO) 0 % (0-10); EOSINOPHILS # (AUTO) 0.1 10^3/uL (0.0-0.3); EOSINOPHILS % (AUTO) 1 % (0-10); HEMATOCRIT 44 % (40-54); HEMOGLOBIN 14.4 G/DL (13.3-17.7); LYMPHOCYTES # (AUTO) 0.8 X 10^3 (1.0-4.0); LYMPHOCYTES % (AUTO) 12 % (12-44); MEAN CORPUSCULAR HEMOGLOBIN 32 PG (25-34); MEAN CORPUSCULAR HGB CONC 33 G/DL (32-36); MEAN CORPUSCULAR VOLUME 97 FL (80-99); MEAN PLATELET VOLUME 10.4 FL (7.4-10.4); MONOCYTES # (AUTO) 0.6 X 10^3 (0.0-1.0); MONOCYTES % (AUTO) 8 % (0-12); NEUTROPHILS # (AUTO) 5.6 X 10^3 (1.8-7.8); NEUTROPHILS % (AUTO) 79 % (42-75); PLATELET COUNT 145 10^3/uL (130-400); RED CELL DISTRIBUTION WIDTH 13.4 % (10.0-14.5); WHITE BLOOD COUNT 7.1 10^3/uL (4.3-11.0)
[2020-02-23 13:31] LABS: BUN/CREATININE RATIO 14; CALCIUM 8.6 MG/DL (8.5-10.1); CARBON DIOXIDE 23 MMOL/L (21-32); CHLORIDE 106 MMOL/L (98-107); CREATININE SERUM 0.81 MG/DL (0.60-1.30); GFR ESTIMATED > 60; GLUCOSE 113 MG/DL (70-105); POTASSIUM 3.7 MMOL/L (3.6-5.0); SODIUM 139 MMOL/L (135-145)
[2020-03-08 11:15] LABS: BASOPHILS % (AUTO) 0 % (0-10); EOSINOPHILS # (AUTO) 0.1 10^3/uL (0.0-0.3); EOSINOPHILS % (AUTO) 1 % (0-10); HEMATOCRIT 44 % (40-54); HEMOGLOBIN 14.7 G/DL (13.3-17.7); LYMPHOCYTES # (AUTO) 0.8 X 10^3 (1.0-4.0); LYMPHOCYTES % (AUTO) 10 % (12-44); MEAN CORPUSCULAR HEMOGLOBIN 33 PG (25-34); MEAN CORPUSCULAR HGB CONC 33 G/DL (32-36); MEAN CORPUSCULAR VOLUME 98 FL (80-99); MEAN PLATELET VOLUME 9.5 FL (7.4-10.4); MONOCYTES # (AUTO) 0.6 X 10^3 (0.0-1.0); MONOCYTES % (AUTO) 8 % (0-12); NEUTROPHILS # (AUTO) 5.8 X 10^3 (1.8-7.8); NEUTROPHILS % (AUTO) 80 % (42-75); PLATELET COUNT 138 10^3/uL (130-400); RED CELL DISTRIBUTION WIDTH 13.4 % (10.0-14.5); WHITE BLOOD COUNT 7.2 10^3/uL (4.3-11.0)
[2020-03-08 11:36] LABS: ALANINE AMINOTRANSFERASE 18 U/L (0-55); ALKALINE PHOSPHATASE 74 U/L (40-136); BUN/CREATININE RATIO 12; CALCIUM 8.8 MG/DL (8.5-10.1); CARBON DIOXIDE 26 MMOL/L (21-32); CHLORIDE 107 MMOL/L (98-107); CREATININE SERUM 0.82 MG/DL (0.60-1.30); GFR ESTIMATED > 60; GLUCOSE 118 MG/DL (70-105); POTASSIUM 3.6 MMOL/L (3.6-5.0); SODIUM 140 MMOL/L (135-145)
== END 2020-03-30 13:45 | disposition home or self-care (01) ==
LOC: ONC 10:42
PROVIDERS: ATTEND Internal Medicine Hematology & Oncology
DX: C71.2 Malignant neoplasm of temporal lobe (principal); E78.00 Pure hypercholesterolemia, unspecified; I11.9 Hypertensive heart disease without heart failure; E78.2 Mixed hyperlipidemia; J44.9 Chronic obstructive pulmonary disease, unspecified; I25.10 Atherosclerotic heart disease of native coronary artery without angina pectoris; G47.33 Obstructive sleep apnea (adult) (pediatric); H81.10 Benign paroxysmal vertigo, unspecified ear; Z98.890 Other specified postprocedural states; Z79.899 Other long term (current) drug therapy; Z22.7 Latent tuberculosis; Z72.0 Tobacco use
CPT/HCPCS: 80053; 85025; G0463; 36415; 80048; 99213

== ENCOUNTER → 2020-03-23 | Outpatient (CLI) | payer BC ==
[~2020-03-23] MED LIST changes: +GADOBUTROL 10 MMOL/10 ML (GADAVIST) VIAL IV ONE
--- NOTE | 2020-03-23 10:32 | Diagnostic Imaging Report ---
PROCEDURE: MR imaging of the brain with and without contrast. TECHNIQUE: Multiplanar, multisequence MR imaging of the brain was performed with and without contrast. INDICATION: History of glioblastoma status post resection in August 2019. Headache. COMPARISON: MRI brain on 09/14/2019, 09/09/2019. FINDINGS: Postsurgical changes of right temporal craniotomy and mass resection from the right temporal lobe are visualized. A small area of nodular enhancement is seen along the lateral aspect of the surgical bed measuring 1.0 x 0.7 cm and 1.4 cm craniocaudal. This is new compared to the prior exam. The enhancement along the more superior margin of the surgical bed is relatively stable. There has been interval improvement in surrounding T2/FLAIR hyperintense signal, with the biggest decrease in the right frontal and parietal regions. Residual scattered T2 hyperintense signal is seen surrounding the surgical bed and within the majority of the right temporal lobe white matter. No new areas of signal abnormality are visualized. No acute ischemia or hemorrhage. No findings to suggest hydrocephalus. The sellar and suprasellar region have a normal appearance. The major intracranial flow voids are intact. The brainstem and posterior fossa are unremarkable. The paranasal sinuses demonstrate normal signal characteristics. A right-sided mastoid effusion is noted. The globes and orbits are symmetric and unremarkable. IMPRESSION: 1. New area of nodular enhancement along the lateral aspect of the surgical bed in the right temporal lobe. This is concerning for residual or recurrent tumor. Recommend close interval follow-up and if indicated neurosurgical consultation to further evaluate. 2. Interval improvement in T2 hyperintense signal in the right cerebral hemisphere, with the greatest improvement in the right frontal and parietal regions. This likely represents improved edema and/or treatment response. Continued T2 hyperintense signal is noted surrounding the surgical bed and throughout the white matter of the right temporal lobe. 3. No evidence of acute ischemia or hemorrhage. No acute hydrocephalus. 4. Right mastoid effusion. Dictated by: Dictated on workstation # [id number]
== END ==
LOC: RAD 09:16
PROVIDERS: ATTEND Internal Medicine Hematology & Oncology
DX: C71.2 Malignant neoplasm of temporal lobe (principal); H74.8X1 Other specified disorders of right middle ear and mastoid; G93.89 Other specified disorders of brain
CPT/HCPCS: 70553

== ENCOUNTER 2020-04-10 14:20 | Outpatient (RCR) | payer BC ==
[2020-04-03 15:06] LABS: BASOPHILS % (AUTO) 0 % (0-10); EOSINOPHILS # (AUTO) 0.2 10^3/uL (0.0-0.3); EOSINOPHILS % (AUTO) 3 % (0-10); HEMATOCRIT 43 % (40-54); HEMOGLOBIN 14.2 G/DL (13.3-17.7); LYMPHOCYTES # (AUTO) 0.9 X 10^3 (1.0-4.0); LYMPHOCYTES % (AUTO) 17 % (12-44); MEAN CORPUSCULAR HEMOGLOBIN 33 PG (25-34); MEAN CORPUSCULAR HGB CONC 33 G/DL (32-36); MEAN CORPUSCULAR VOLUME 101 FL (80-99); MEAN PLATELET VOLUME 10.3 FL (7.4-10.4); MONOCYTES # (AUTO) 0.5 X 10^3 (0.0-1.0); MONOCYTES % (AUTO) 9 % (0-12); NEUTROPHILS # (AUTO) 3.7 X 10^3 (1.8-7.8); NEUTROPHILS % (AUTO) 70 % (42-75); PLATELET COUNT 81 10^3/uL (130-400); WHITE BLOOD COUNT 5.2 10^3/uL (4.3-11.0)
[2020-04-03 15:33] LABS: ALANINE AMINOTRANSFERASE 24 U/L (0-55); ALBUMIN 3.9 GM/DL (3.2-4.5); ALKALINE PHOSPHATASE 78 U/L (40-136); BILIRUBIN,TOTAL 0.7 MG/DL (0.1-1.0); BUN/CREATININE RATIO 14; CALCIUM 8.7 MG/DL (8.5-10.1); CARBON DIOXIDE 25 MMOL/L (21-32); CHLORIDE 108 MMOL/L (98-107); GFR ESTIMATED > 60; GLUCOSE 109 MG/DL (70-105); SODIUM 143 MMOL/L (135-145)
[~2020-04-10 14:20] MED LIST changes: -GADOBUTROL 10 MMOL/10 ML (GADAVIST) VIAL IV ONE
[2020-04-10 14:32] LABS: BASOPHILS % (AUTO) 0 % (0-10); EOSINOPHILS # (AUTO) 0.2 10^3/uL (0.0-0.3); EOSINOPHILS % (AUTO) 3 % (0-10); HEMATOCRIT 43 % (40-54); HEMOGLOBIN 14.6 G/DL (13.3-17.7); LYMPHOCYTES # (AUTO) 1.1 X 10^3 (1.0-4.0); LYMPHOCYTES % (AUTO) 19 % (12-44); MEAN CORPUSCULAR HEMOGLOBIN 34 PG (25-34); MEAN CORPUSCULAR HGB CONC 34 G/DL (32-36); MEAN CORPUSCULAR VOLUME 100 FL (80-99); MEAN PLATELET VOLUME 10.1 FL (7.4-10.4); MONOCYTES # (AUTO) 0.5 X 10^3 (0.0-1.0); MONOCYTES % (AUTO) 9 % (0-12); NEUTROPHILS # (AUTO) 4.1 X 10^3 (1.8-7.8); NEUTROPHILS % (AUTO) 69 % (42-75); PLATELET COUNT 114 10^3/uL (130-400); WHITE BLOOD COUNT 5.8 10^3/uL (4.3-11.0)
== END 2020-07-02 | disposition home or self-care (01) ==
LOC: ONC 14:20
PROVIDERS: ATTEND Internal Medicine Hematology & Oncology
DX: C71.2 Malignant neoplasm of temporal lobe (principal); E78.00 Pure hypercholesterolemia, unspecified; I11.9 Hypertensive heart disease without heart failure; E78.2 Mixed hyperlipidemia; J44.9 Chronic obstructive pulmonary disease, unspecified; I25.10 Atherosclerotic heart disease of native coronary artery without angina pectoris; G47.33 Obstructive sleep apnea (adult) (pediatric); H81.10 Benign paroxysmal vertigo, unspecified ear; Z98.890 Other specified postprocedural states; Z79.899 Other long term (current) drug therapy; Z22.7 Latent tuberculosis; Z72.0 Tobacco use
CPT/HCPCS: 80053; 85025; G0463; 99213

== ENCOUNTER 2020-07-02 22:25 | Emergency (ER) | payer BC ==
[~2020-07-02] VITALS: Ht 182.8 cm; Wt 74.3 kg
--- NOTE | 2020-07-02 22:40 | ED Neurological Problem ---
General Stated Complaint: L SIDED WEAKNESS,DIFFICULTY WALKING History of Present Illness Date Seen by Provider: Jul 02, 2020 Time Seen by Provider: 22:35 Initial Comments 64-year-old male presents with some left-sided weakness, difficulty walking. He reports he fell twice this evening. Patient has a history of glioblastoma with 2 surgeries on his brain. He reports the symptoms started yesterday. He called his neuro-oncologist who thought he might be developing some mild swelling on the brain. Because his symptoms worsen today with the falls he was sent in for a CT just to ensure no bleed or acute stroke that need to be addressed. He is scheduled to have an MRI on July 09 that they're hoping that move out. They felt they didn't want to start him on any steroids for the swelling at this time. He has no vision changes, focal weakness or other systemic complaints. Allergies and Home Medications Allergies Coded Allergies: midazolam (Verified Allergy, Unknown, 10/25/19) Home Medications Atorvastatin Calcium 40 Mg Tablet, 40 MG PO DAILY, (Reported) Divalproex Sodium 250 Mg Tablet.dr, 250 MG PO TID, (Reported) Escitalopram Oxalate 10 Mg Tablet, 10 MG PO DAILY, (Reported) Levetiracetam 500 Mg Tablet, 500 MG PO BID, (Reported) Lisinopril 10 Mg Tablet, 10 MG PO DAILY, (Reported) Ondansetron HCl 8 Mg Tablet, 8 MG PO TID PRN for NAUSEA/VOMITING, (Reported) Pantoprazole Sodium 40 Mg Tablet.dr, 40 MG PO DAILY, (Reported) Patient Home Medication List Home Medication List Reviewed: Yes Review of Systems Review of Systems Constitutional: No chills, No fever Eyes: No Symptoms Reported Ears, Nose, Mouth, Throat: no symptoms reported Respiratory: no symptoms reported Cardiovascular: no symptoms reported Gastrointestinal: no symptoms reported Genitourinary: no symptoms reported Musculoskeletal: see HPI Skin: no symptoms reported Psychiatric/Neurological: See HPI Past Tpykujh-Doxjra-Guueen Hx Past Med/Social Hx: Reviewed Nursing Past Med/Soc Hx Patient Social History Type Used: Cigarettes 2nd Hand Smoke Exposure: Yes Recent Foreign Travel: No Contact w/Someone Who Travel: No Recent Hopitalizations: No Seasonal Allergies Seasonal Allergies: No Past Medical History Surgeries: Yes (Brain Tumor Removed 09-14-19, Cardiac Stent X5) Coronary Stent, Vascular Surgery Respiratory: No Cardiac: Yes ([place] X2) Coronary Artery Disease, Heart Attack Neurological: Yes Vertigo Genitourinary: Yes Kidney Stones Gastrointestinal: No Musculoskeletal: No Endocrine: No HEENT: No Cancer: Yes Brain What Type of Treatment Did You: Chemotherapy, Radiation Psychosocial: No Integumentary: No Blood Disorders: No Physical Exam Vital Signs Capillary Refill : Height, Weight, BMI Height: '" Weight: lbs. oz. kg; 26.00 BMI Method: General Appearance: WD/WN, no apparent distress HEENT: PERRL/EOMI Neck: full range of motion, supple Respiratory: lungs clear, normal breath sounds, no respiratory distress Cardiovascular: normal peripheral pulses, regular rate, rhythm Gastrointestinal: normal bowel sounds, non tender, soft Extremities: normal range of motion, non-tender, normal capillary refill Neurologic/Psychiatric: no motor/sensory deficits, alert, normal mood/affect, oriented x 3; No motor weakness Crainal Nerves: normal hearing, normal speech; No abnormal speech, No facial asymmetry, No facial droop, No facial weakness Coordination/Gait: normal gait Motor/Sensory: no motor deficit, no sensory deficit; No weak motor strength RUE, No weak motor strength LUE, No weak motor strength RLE, No weak motor st rength LLE Skin: normal color, warm/dry Progress/Results/Core Measures Results/Orders Lab Results Laboratory Tests Test 07/02/20 22:47 Range/Units White Blood Count 5.7 4.3-11.0 10^3/uL Red Blood Count 4.34 L 4.35-5.85 10^6/uL Hemoglobin 14.6 13.3-17.7 G/DL Hematocrit 43 40-54 % Mean Corpuscular Volume 100 H 80-99 FL Mean Corpuscular Hemoglobin 34 25-34 PG Mean Corpuscular Hemoglobin Concent 34 32-36 G/DL Red Cell Distribution Width 13.5 10.0-14.5 % Platelet Count 137 130-400 10^3/uL Mean Platelet Volume 10.9 H 7.4-10.4 FL Neutrophils (%) (Auto) 69 42-75 % Lymphocytes (%) (Auto) 17 12-44 % Monocytes (%) (Auto) 11 0-12 % Eosinophils (%) (Auto) 3 0-10 % Basophils (%) (Auto) 0 0-10 % Neutrophils # (Auto) 3.9 1.8-7.8 X 10^3 Lymphocytes # (Auto) 1.0 1.0-4.0 X 10^3 Monocytes # (Auto) 0.6 0.0-1.0 X 10^3 Eosinophils # (Auto) 0.2 0.0-0.3 10^3/uL Basophils # (Auto) 0.0 0.0-0.1 10^3/uL Prothrombin Time 13.9 12.2-14.7 SEC INR Comment 1.0 0.8-1.4 Activated Partial Thromboplast Time 33 24-35 SEC Sodium Level 139 135-145 MMOL/L Potassium Level 4.2 3.6-5.0 MMOL/L Chloride Level 103 98-107 MMOL/L Carbon Dioxide Level 28 21-32 MMOL/L Anion Gap 8 5-14 MMOL/L Blood Urea Nitrogen 13 7-18 MG/DL Creatinine 0.82 0.60-1.30 MG/DL Estimat Glomerular Filtration Rate > 60 BUN/Creatinine Ratio 16 Glucose Level 85 70-105 MG/DL Calcium Level 8.8 8.5-10.1 MG/DL Corrected Calcium 9.0 8.5-10.1 MG/DL Total Bilirubin 0.6 0.1-1.0 MG/DL Aspartate Amino Transf (AST/SGOT) 16 5-34 U/L Alanine Aminotransferase (ALT/SGPT) 23 0-55 U/L Alkaline Phosphatase 64 40-136 U/L Total Protein 5.8 L 6.4-8.2 GM/DL Albumin 3.8 3.2-4.5 GM/DL My Orders Orders - HANLEY,ALBARO L DO Ct Head Wo-R/O Stroke (07/02/20 22:41) Cbc With Automated Diff (07/02/20 22:41) Comprehensive Metabolic Panel (07/02/20 22:41) Protime With Inr (07/02/20 22:41) Partial Thromboplastin Time (07/02/20 22:41) Acetaminophen Tablet (Tylenol Tablet) (07/02/20 23:15) Medications Given in ED Current Medications Medications Dose Ordered Sig/Kalpana Route Start Time Stop Time Status Last Admin Dose Admin Acetaminophen 500 mg STK-MED ONCE .ROUTE 07/02/20 23:15 07/02/20 23:19 DC 07/02/20 23:21 1,000 MG Progress Progress Note : Time: 23:[address] scan shows concerns for progression of his tumor versus cerebritis. Patient is stable with no acute physical findings. He should call his neuro- oncologist in the morning for further evaluation and to schedule an earlier MRI. Patient is stable upon discharge Departure Impression Primary Impression: Glioblastoma Additional Impression: Cerebritis Disposition: 01 HOME, SELF-CARE Condition: Stable Departure-Patient Inst. Referrals: SELF,LIBORIO DE JESUS (PCP/Family) Primary Care Physician Patient Instructions: Brain Tumor, Adult (DC) Add. Discharge Instructions: Call your neuro-oncologist in the morning for further instructions and review of imaging ALBARO HANLEY DO Jul 02, 2020 22:40
[2020-07-02 22:52] LABS: BASOPHILS % (AUTO) 0 % (0-10); EOSINOPHILS # (AUTO) 0.2 10^3/uL (0.0-0.3); EOSINOPHILS % (AUTO) 3 % (0-10); HEMATOCRIT 43 % (40-54); HEMOGLOBIN 14.6 G/DL (13.3-17.7); LYMPHOCYTES % (AUTO) 17 % (12-44); MEAN CORPUSCULAR HEMOGLOBIN 34 PG (25-34); MEAN CORPUSCULAR HGB CONC 34 G/DL (32-36); MEAN CORPUSCULAR VOLUME 100 FL (80-99); MEAN PLATELET VOLUME 10.9 FL (7.4-10.4); MONOCYTES # (AUTO) 0.6 X 10^3 (0.0-1.0); MONOCYTES % (AUTO) 11 % (0-12); NEUTROPHILS # (AUTO) 3.9 X 10^3 (1.8-7.8); NEUTROPHILS % (AUTO) 69 % (42-75); PLATELET COUNT 137 10^3/uL (130-400); WHITE BLOOD COUNT 5.7 10^3/uL (4.3-11.0)
[2020-07-02 23:03] LABS: ALBUMIN 3.8 GM/DL (3.2-4.5); CHLORIDE 103 MMOL/L (98-107); POTASSIUM 4.2 MMOL/L (3.6-5.0); SODIUM 139 MMOL/L (135-145)
[2020-07-02 23:04] LABS: CALCIUM 8.8 MG/DL (8.5-10.1)
[2020-07-02 23:05] LABS: GLUCOSE 85 MG/DL (70-105)
[2020-07-02 23:06] LABS: TOTAL PROTEIN 5.8 GM/DL (6.4-8.2)
[2020-07-02 23:07] LABS: BILIRUBIN,TOTAL 0.6 MG/DL (0.1-1.0); CARBON DIOXIDE 28 MMOL/L (21-32)
[2020-07-02 23:09] LABS: ALKALINE PHOSPHATASE 64 U/L (40-136); CREATININE SERUM 0.82 MG/DL (0.60-1.30); GFR ESTIMATED > 60
[2020-07-02 23:10] LABS: BUN/CREATININE RATIO 16
[2020-07-02 23:12] LABS: ALANINE AMINOTRANSFERASE 23 U/L (0-55)
[2020-07-02] MEDS ORDERED: ACETAMINOPHEN 500 MG TAB (TYLENOL) ONE (23:15)
--- NOTE | 2020-07-02 23:22 | NUR ---
ORDER TO TAKE OWN OXYCODONE 5 MG TABLET. OBSERVED BY THIS RN PATIENT TAKE HIS OWN MEDICATION FROM APPROPRIATE BOTTLE LABLED OXYCODONE PRESCRIBED BY LEONARDO JACKSON
[2020-07-02 23:30] LABS: PROTHROMBIN TIME PATIENT 13.9 SEC (12.2-14.7)
[2020-07-03] VITALS: BP 151/85
--- NOTE | 2020-07-03 05:32 | Diagnostic Imaging Report ---
EXAMINATION: CT head without contrast. TECHNIQUE: Multiple contiguous axial images were obtained through the brain without the use of intravenous contrast. All CT scans use one or more of the following dose optimizing techniques: automated exposure control, MA and/or KvP adjustment based on a patient size and exam type, or iterative reconstruction. HISTORY: Neurologic deficit. Left-sided weakness. History of glioblastoma. COMPARISON: MRI brain on 03/23/2020. FINDINGS: There is confluent hypoattenuation throughout the white matter of the right temporal and parietal lobes and involving the posterior aspect of the white matter of the right frontal lobe. There is also involvement of the right basal ganglia. This results in effacement of the cortical sulci of the right cerebral hemisphere, effacement of the right lateral ventricle, and 0.9 cm of jjzoa-oc-[id number] midline shift. No uncal or tonsillar herniation is seen. No evidence of hemorrhage. Postsurgical changes of right temporal craniotomy and mass resection from the right temporal lobe are noted. The orbits are normal. Paranasal sinuses are normal. Mastoid air cells are clear. IMPRESSION: 1. Interval development of confluent hypoattenuation involving a large portion of the white matter of the right cerebral hemisphere. Subsequent effacement of the right lateral ventricle and right to left midline shift is seen. These findings are highly concerning for disease progression given the patient history of glioblastoma. Recommend further evaluation with MRI brain with and without contrast. 2. No acute hemorrhage. Agree with overnight report. Dictated by: Dictated on workstation # [id number]
== END 2020-07-03 | disposition home or self-care (01) ==
LOC: EDUNIT# 22:25 → ER 22:27
DX: C71.9 Malignant neoplasm of brain, unspecified (principal); G04.90 Encephalitis and encephalomyelitis, unspecified; I25.2 Old myocardial infarction; Z95.5 Presence of coronary angioplasty implant and graft; Z77.22 Contact with and (suspected) exposure to environmental tobacco smoke (acute) (chronic); Z88.4 Allergy status to anesthetic agent
CPT/HCPCS: 36415; 70450; 80053; 85025; 85610; 85730

== ENCOUNTER 2020-07-26 14:55 | Emergency (ER) | payer BC ==
[~2020-07-26] VITALS: Ht 182.8 cm; Wt 83.7 kg
[2020-07-26] MEDS ORDERED: NS IV 1000 ML 1,000 ML IV STA (15:05)
--- NOTE | 2020-07-26 15:05 | ED GU-Male ---
General Stated Complaint: FEVER; FREQUENT URINATION Source: patient, family Exam Limitations: no limitations History of Present Illness Date Seen by Provider: Jul 26, 2020 Time Seen by Provider: 15:01 Initial Comments 64-year-old male presents due to fever. Patient has glioblastoma. Home health nurse was in this morning and took his temperature and is found to be slightly elevated. Patient does have some symptoms of some frequent urination but no burning or stinging. Patient reports that he had a little bit worse than normal headache this morning. He denies any cough, nausea or other systemic complaints. Patient presents because they wanted to have him evaluated to ensure he wasn't "septic" patient headache is improved at this time. Patient and his were not where he even had a fever. Patient's temperature was taken just shortly after he took off a hat.. A repeat shortly afterwards was then normal. Allergies and Home Medications Allergies Coded Allergies: midazolam (Verified Allergy, Unknown, 10/25/19) Home Medications Atorvastatin Calcium 40 Mg Tablet, 40 MG PO DAILY, (Reported) Divalproex Sodium 250 Mg Tablet.dr, 250 MG PO TID, (Reported) Escitalopram Oxalate 10 Mg Tablet, 10 MG PO DAILY, (Reported) Levetiracetam 500 Mg Tablet, 500 MG PO BID, (Reported) Lisinopril 10 Mg Tablet, 10 MG PO DAILY, (Reported) Ondansetron HCl 8 Mg Tablet, 8 MG PO TID PRN for NAUSEA/VOMITING, (Reported) Pantoprazole Sodium 40 Mg Tablet.dr, 40 MG PO DAILY, (Reported) Patient Home Medication List Home Medication List Reviewed: Yes Review of Systems Review of Systems Constitutional: No chills; fever Respiratory: No cough, No short of breath Cardiovascular: No chest pain, No palpitations Gastrointestinal: No abdominal pain, No nausea, No vomiting Genitourinary: denies burning; frequency Musculoskeletal: no symptoms reported Skin: no symptoms reported Psychiatric/Neurological: See HPI, Headache Past Cyhmvgu-Pxtlsc-Nxmgzj Hx Past Med/Social Hx: Reviewed Nursing Past Med/Soc Hx Patient Social History Type Used: Cigarettes 2nd Hand Smoke Exposure: Yes Recent Foreign Travel: No Contact w/Someone Who Travel: No Recent Hopitalizations: No Seasonal Allergies Seasonal Allergies: No Past Medical History Surgeries: Yes (Brain Tumor Removed 09-14-19, Cardiac Stent X5) Coronary Stent, Vascular Surgery Respiratory: No Cardiac: Yes ([place] X2) Coronary Artery Disease, Heart Attack Neurological: Yes Vertigo Genitourinary: Yes Kidney Stones Gastrointestinal: No Musculoskeletal: No Endocrine: No HEENT: No Cancer: Yes Brain What Type of Treatment Did You: Chemotherapy, Radiation Psychosocial: No Integumentary: No Blood Disorders: No Physical Exam Vital Signs Vital Signs - First Documented 07/26/20 15:31 Temp 36.8 Pulse 84 Resp 16 B/P (MAP) 137/86 (103) Pulse Ox 96 O2 Delivery Room Air Capillary Refill : Height, Weight, BMI Height: '" Weight: lbs. oz. kg; 26.00 BMI Method: General Appearance: WD/WN, no apparent distress HEENT: PERRL/EOMI Neck: supple Cardiovascular: normal peripheral pulses, regular rate, rhythm Respiratory: lungs clear, normal breath sounds Gastrointestinal: non tender, soft Extremities: normal range of motion, non-tender Neurologic/Psychiatric: alert, normal mood/affect, oriented x 3 Focused Exam Lactate Level 07/26/20 15:10: Lactic Acid Level 1.24 Lactic Acid Level Laboratory Tests Test 07/26/20 15:10 Lactic Acid Level 1.24 MMOL/L (0.50-2.00) Progress/Results/Core Measures Suspected Sepsis SIRS Temperature: Pulse: Respiratory Rate: Laboratory Tests 07/26/20 15:10: White Blood Count 6.7 Blood Pressure / Mean: 07/26/20 15:10: Lactic Acid Level 1.24 Laboratory Tests 07/26/20 15:10: Creatinine 0.63, Platelet Count 136, Total Bilirubin 0.6 Results/Orders Lab Results Laboratory Tests Test 07/26/20 15:10 07/26/20 15:44 Range/Units White Blood Count 6.7 4.3-11.0 10^3/uL Red Blood Count 4.38 4.35-5.85 10^6/uL Hemoglobin 14.7 13.3-17.7 G/DL Hematocrit 44 40-54 % Mean Corpuscular Volume 100 H 80-99 FL Mean Corpuscular Hemoglobin 34 25-34 PG Mean Corpuscular Hemoglobin Concent 34 32-36 G/DL Red Cell Distribution Width 13.2 10.0-14.5 % Platelet Count 136 130-400 10^3/uL Mean Platelet Volume 9.9 7.4-10.4 FL Immature Granulocyte % (Auto) 0 % Neutrophils (%) (Auto) 75 42-75 % Lymphocytes (%) (Auto) 13 12-44 % Monocytes (%) (Auto) 10 0-12 % Eosinophils (%) (Auto) 2 0-10 % Basophils (%) (Auto) 0 0-10 % Neutrophils # (Auto) 5.0 1.8-7.8 X 10^3 Lymphocytes # (Auto) 0.9 L 1.0-4.0 X 10^3 Monocytes # (Auto) 0.7 0.0-1.0 X 10^3 Eosinophils # (Auto) 0.1 0.0-0.3 10^3/uL Basophils # (Auto) 0.0 0.0-0.1 10^3/uL Immature Granulocyte # (Auto) 0.0 0.0-0.1 10^3/uL Sodium Level 137 135-145 MMOL/L Potassium Level 4.1 3.6-5.0 MMOL/L Chloride Level 104 98-107 MMOL/L Carbon Dioxide Level 25 21-32 MMOL/L Anion Gap 8 5-14 MMOL/L Blood Urea Nitrogen 14 7-18 MG/DL Creatinine 0.63 0.60-1.30 MG/DL Estimat Glomerular Filtration Rate > 60 BUN/Creatinine Ratio 22 Glucose Level 101 70-105 MG/DL Lactic Acid Level 1.24 0.50-2.00 MMOL/L Calcium Level 8.8 8.5-10.1 MG/DL Corrected Calcium 8.9 8.5-10.1 MG/DL Total Bilirubin 0.6 0.1-1.0 MG/DL Aspartate Amino Transf (AST/SGOT) 13 5-34 U/L Alanine Aminotransferase (ALT/SGPT) 14 0-55 U/L Alkaline Phosphatase 60 40-136 U/L Total Protein 6.2 L 6.4-8.2 GM/DL Albumin 3.9 3.2-4.5 GM/DL Urine Color YELLOW Urine Clarity CLEAR Urine pH 6.5 5-9 Urine Specific [place] 1.010 L 1.016-1.022 Urine Protein NEGATIVE NEGATIVE Urine Glucose (UA) NEGATIVE NEGATIVE Urine Ketones NEGATIVE NEGATIVE Urine Nitrite NEGATIVE NEGATIVE Urine Bilirubin NEGATIVE NEGATIVE Urine Urobilinogen 4.0 < = 1.0 MG/DL Urine Leukocyte Esterase NEGATIVE NEGATIVE Urine RBC (Auto) TRACE H NEGATIVE Urine RBC 2-5 H /HPF Urine WBC RARE /HPF Urine Crystals NONE /LPF Urine Bacteria NONE /HPF Urine Casts NONE /LPF Urine Mucus TRACE /LPF Urine Culture Indicated NO My Orders Orders - LABARO HANLEY DO Cbc With Automated Diff (07/26/20 15:05) Comprehensive Metabolic Panel (07/26/20 15:05) Lactic Acid Analyzer (07/26/20 15:05) Ua Culture If Indicated (07/26/20 15:05) Ns Iv 1000 Ml (Sodium Chloride 0.9%) (07/26/20 15:05) Ed Iv/Invasive Line Start (07/26/20 15:05) Vital Signs/I&O 07/26/20 15:31 Temp 36.8 Pulse 84 Resp 16 B/P (MAP) 137/86 (103) Pulse Ox 96 O2 Delivery Room Air Capillary Refill : Progress Note : Time: 16:02 Progress Note A shunt with no signs of infection on evaluation of labs. Patient feeling better after the IV fluid and thinks maybe was a little dehydrated. Patient will be discharged home and should follow-up with [facility] as needed Departure Impression Primary Impression: Urinary frequency Additional Impression: Glioblastoma Disposition: 01 HOME, SELF-CARE Condition: Stable Departure-Patient Inst. Referrals: SELF,LIBORIO DE JESUS (PCP/Family) Primary Care Physician Add. Discharge Instructions: Follow-up with your primary provider and [facility] as needed ALBARO HANLEY DO Jul 26, 2020 15:05
[2020-07-26 15:27] LABS: HEMATOCRIT 44 % (40-54); HEMOGLOBIN 14.7 G/DL (13.3-17.7); MEAN CORPUSCULAR HEMOGLOBIN 34 PG (25-34); MEAN CORPUSCULAR VOLUME 100 FL (80-99); WHITE BLOOD COUNT 6.7 10^3/uL (4.3-11.0)
[2020-07-26 15:28] LABS: BASOPHILS % (AUTO) 0 % (0-10); EOSINOPHILS # (AUTO) 0.1 10^3/uL (0.0-0.3); EOSINOPHILS % (AUTO) 2 % (0-10); LYMPHOCYTES # (AUTO) 0.9 X 10^3 (1.0-4.0); LYMPHOCYTES % (AUTO) 13 % (12-44); MEAN CORPUSCULAR HGB CONC 34 G/DL (32-36); MEAN PLATELET VOLUME 9.9 FL (7.4-10.4); MONOCYTES # (AUTO) 0.7 X 10^3 (0.0-1.0); MONOCYTES % (AUTO) 10 % (0-12); NEUTROPHILS % (AUTO) 75 % (42-75); PLATELET COUNT 136 10^3/uL (130-400)
[2020-07-26 15:31] VITALS: BP 137/86
[2020-07-26 15:51] LABS: ALANINE AMINOTRANSFERASE 14 U/L (0-55); ALKALINE PHOSPHATASE 60 U/L (40-136); BILIRUBIN,TOTAL 0.6 MG/DL (0.1-1.0); BUN/CREATININE RATIO 22; CALCIUM 8.8 MG/DL (8.5-10.1); CARBON DIOXIDE 25 MMOL/L (21-32); CHLORIDE 104 MMOL/L (98-107); CREATININE SERUM 0.63 MG/DL (0.60-1.30); GFR ESTIMATED > 60; GLUCOSE 101 MG/DL (70-105); POTASSIUM 4.1 MMOL/L (3.6-5.0); SODIUM 137 MMOL/L (135-145); TOTAL PROTEIN 6.2 GM/DL (6.4-8.2)
[2020-07-26 15:52] LABS: ALBUMIN 3.9 GM/DL (3.2-4.5)
[2020-07-26 15:58] LABS: CLARITY,URINE CLEAR; COLOR,URINE YELLOW; GLUCOSE, URINE (UA) NEGATIVE (NEGATIVE); PH,URINE 6.5 (5-9); PROTEIN,URINE NEGATIVE (NEGATIVE)
[2020-07-26 15:59] LABS: BILIRUBIN,URINE NEGATIVE (NEGATIVE); KETONES,URINE NEGATIVE (NEGATIVE); LEUKOCYTE ESTERASE ,URINE NEGATIVE (NEGATIVE); NITRITE,URINE NEGATIVE (NEGATIVE); WBC,URINE RARE /HPF
== END 2020-07-26 16:05 | disposition home or self-care (01) ==
LOC: EDUNIT# 14:55 → ER FS 14:56
DX: R35.0 Frequency of micturition (principal); C71.9 Malignant neoplasm of brain, unspecified; I25.2 Old myocardial infarction; Z85.841 Personal history of malignant neoplasm of brain; Z95.5 Presence of coronary angioplasty implant and graft; Z77.22 Contact with and (suspected) exposure to environmental tobacco smoke (acute) (chronic); Z88.8 Allergy status to other drugs, medicaments and biological substances
CPT/HCPCS: 36415; 80053; 81000; 83605; 85025

== ENCOUNTER 2021-01-28 16:09 | Emergency (ER) | payer MEDICARE ==
[~2021-01-28 16:09] MED LIST changes: +ESCI-2 PO; -ESCI10TA55 PO; -LISI10TA2 PO; +LISI10TA25 PO
[2021-01-28 16:22] LABS: WHITE BLOOD COUNT 6.8 10^3/uL (4.3-11.0)
[2021-01-28 16:23] LABS: BASOPHILS % (AUTO) 1 % (0-10); EOSINOPHILS # (AUTO) 0.6 10^3/uL (0.0-0.3); EOSINOPHILS % (AUTO) 8 % (0-10); HEMATOCRIT 42 % (40-54); LYMPHOCYTES # (AUTO) 1.2 X 10^3 (1.0-4.0); LYMPHOCYTES % (AUTO) 17 % (12-44); MEAN CORPUSCULAR HEMOGLOBIN 33 PG (25-34); MEAN CORPUSCULAR HGB CONC 34 G/DL (32-36); MEAN CORPUSCULAR VOLUME 98 FL (80-99); MEAN PLATELET VOLUME 11.2 FL (7.4-10.4); MONOCYTES # (AUTO) 0.7 X 10^3 (0.0-1.0); MONOCYTES % (AUTO) 11 % (0-12); NEUTROPHILS # (AUTO) 4.2 X 10^3 (1.8-7.8); NEUTROPHILS % (AUTO) 63 % (42-75); PLATELET COUNT 116 10^3/uL (130-400)
--- NOTE | 2021-01-28 16:26 | ED Neurological Problem ---
General Chief Complaint: Neuro-Stroke Like Symptoms Stated Complaint: RIGHT SIDE WEAKNESS | EYE DROOPING | SLURRED SPEEC Source: patient, spouse History of Present Illness Date Seen by Provider: Jan 28, 2021 Time Seen by Provider: 16:09 Initial Comments 65 yo male presenting by POV with complaints of recurrent left sided weakness that started about 1530. He was in the car with his and a friend as they drove around looking for [employer]. He had just had similar symptoms on night and had to be flown to for stroke symptoms. 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 He has had 2 previous brain tumors removed by surgery. He was told that he did not have a stroke according to CT and MRI at . They thought it might be seizure activity. He was advised to double his Keppra dose. He also was started on thyroid medication. He was in atrial fibrillation or flutter at but is currently in a sinus rhythm. When his symptoms came on this afternoon he was sitting in the rear passenger seat of the car and suddenly slumped over due to weakness on the left side. He states that he was unable to speak and had difficulty with his speech initially. He has had significant improvement with the left-sided weakness and speaking since the onset of symptoms. 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 He currently denies any chest pain, nausea, vomiting, shortness of breath, difficulty swallowing, vision change. Timing/Duration: 1/2 hour Severity: severe Associated Symptoms: No confusion, No fatigue, No fever/chills, No insomnia, No loss of consciousness, No muscle spasms, No nausea/vomiting, No numbness in legs/feet, No paresthesia, No ringing in ears; seizures (History of seizures but none currently); No sleepy; slurred speech (Initially but rapidly improved); No tingling in legs/feet; trouble walking (Due to weakness on the left side); No vision changes; weakness (Left arm and left leg weakness) Allergies and Home Medications Allergies Coded Allergies: midazolam (Verified Allergy, Unknown, 10/25/19) Home Medications Atorvastatin Calcium 40 Mg Tablet, 40 MG PO DAILY, (Reported) Divalproex Sodium 250 Mg Tablet.dr, 250 MG PO TID, (Reported) Escitalopram Oxalate 10 Mg Tablet, 10 MG PO DAILY, (Reported) Levetiracetam 500 Mg Tablet, 500 MG PO BID, (Reported) Lisinopril 10 Mg Tablet, 10 MG PO DAILY, (Reported) Ondansetron HCl 8 Mg Tablet, 8 MG PO TID PRN for NAUSEA/VOMITING, (Reported) Pantoprazole Sodium 40 Mg Tablet.dr, 40 MG PO DAILY, (Reported) Patient Home Medication List Home Medication List Reviewed: Yes Review of Systems Review of Systems Constitutional: No chills, No diaphoresis, No dizziness, No fever Eyes: Denies Blurred Vision, Denies Photophobia, Denies Vision Changes Ears, Nose, Mouth, Throat: no symptoms reported Respiratory: no symptoms reported Cardiovascular: no symptoms reported; No chest pain Gastrointestinal: no symptoms reported Genitourinary: no symptoms reported Musculoskeletal: muscle weakness (left arm and left leg weakness) Skin: No rash Psychiatric/Neurological: Denies Headache; Unable to Move Lower Ext (left side initially but improved since onset), Unable to Move Upper Ext (left side initially but improved since onset) Past Tsoaxjq-Lynasb-Cbcnhl Hx Past Med/Social Hx: Reviewed Nursing Past Med/Soc Hx Patient Social History Drug of Choice: MARIJUANA Type Used: Cigarettes 2nd Hand Smoke Exposure: Yes Recent Hopitalizations: No Immunizations Up To Date Tetanus Booster (TDap): Less than 5yrs PED Vaccines UTD: Yes Seasonal Allergies Seasonal Allergies: No Past Medical History Surgeries: Yes (Brain Tumor Removed 09-14-19 &APRIL 2020, Cardiac Stent X5) Coronary Stent, Vascular Surgery Respiratory: No Cardiac: Yes (DE X2) Coronary Artery Disease, Heart Attack Neurological: Yes Vertigo Genitourinary: Yes Kidney Stones Gastrointestinal: No Musculoskeletal: No Endocrine: No HEENT: No Cancer: Yes Brain What Type of Treatment Did You: Chemotherapy, Radiation Psychosocial: No Integumentary: No Blood Disorders: No Physical Exam Vital Signs Vital Signs - First Documented 01/28/21 16:19 Temp 36.5 Pulse 73 Resp 20 B/P (MAP) 126/87 (100) Pulse Ox 96 O2 Delivery Room Air Capillary Refill : Height, Weight, BMI Height: '" Weight: lbs. oz. kg; 25.00 BMI Method: General Appearance: WD/WN, no apparent distress HEENT: PERRL/EOMI, normal ENT inspection, pharynx normal Neck: non-tender, full range of motion, supple, normal inspection Respiratory: chest non-tender, lungs clear, normal breath sounds, no respira tory distress, no accessory muscle use Cardiovascular: normal peripheral pulses, regular rate, rhythm Gastrointestinal: normal bowel sounds, non tender, soft, no pulsatile mass Extremities: non-tender, normal capillary refill Neurologic/Psychiatric: harp repairer II-XII nml as tested, alert, normal mood/affect, oriented x 3, other (weakness in left arm and leg) Crainal Nerves: normal hearing, normal speech, PERRL Coordination/Gait: abnormal gait (unable to walk due to left sided weakness) Motor/Sensory: weak motor strength LUE, weak motor strength LLE Skin: normal color, warm/dry Stroke Onset of Symptoms Date of Onset of Symptoms: Jan 28, 2021 Time of Symptom Onset: 15:30 Onset of Symptoms: Yes NIH Stroke Scale Assessment Select: Initial Level of Consciousness: 0=Alert (0), Level of Consciousness- Questions: 0=Answers both month/age (0), LOC Commands: 0=Performs both tasks (0), Gaze: Normal (0), Visual Estrada: 0=No visual loss (0), Facial Movement (Facial Paresis): 0=Normal symmetrical mnt (0), Motor Function-Arms Right: 0=No drift (0), Motor Function-Arms Left: 2=Some effort/gravity (2), Motor Function-Legs Right: 0=No drift (0), Motor Function-Legs Left: 2=Some effort/gravity (2), Limb Ataxia: 0=Absent (0), Sensory: 0=Normal:no loss (0), Best Language: 0=No aphasia (0), Dysarthria: 0=Normal (0), Extinction & Inattention: 0=No abnormality (0), Total: 4 Stroke Thrombolytic Exclusion Age 18 or Over: Yes Acute intenal hemorrhage: No History of CVA: No Uncontrolled Coagulation Defec: No Intracranial Hemorrhage: No Severe Hypertension: No GI or Bleed: No Subarachnoid Hemorrhage: No Intracranial Neoplasm/Aneurysm: Yes Oral Anticoagulants: No Surgery or Trauma: No Puncture of Non-Compressible V: No Recent CPR: No Diabetic Hemorrhagic Retinopat: No Organ Biopsy: No Recent Obstetric Delivery: No Glucose: No Significant Hepatic Dysfunctio: No NIH Stoke Scale >22: No Bacterial Endocarditis: No Pericarditis: No Improving Symptoms: Yes Platelets: No TPA Contraindication: Yes (rapidly improving symptoms, Intracranial mass, recent recurrent symptoms01/25) IV - TPa Received IV - TPa Procedure Performed?: No (Fluctuating symptoms and consult with stroke neurologist) Progress/Results/Core Measures Results/Orders Lab Results Laboratory Tests Test 01/28/21 16:14 01/28/21 16:36 01/28/21 18:15 Range/Units White Blood Count 6.8 4.3-11.0 10^3/uL Red Blood Count 4.23 L 4.35-5.85 10^6/uL Hemoglobin 14.0 13.3-17.7 G/DL Hematocrit 42 40-54 % Mean Corpuscular Volume 98 80-99 FL Mean Corpuscular Hemoglobin 33 25-34 PG Mean Corpuscular Hemoglobin Concent 34 32-36 G/DL Red Cell Distribution Width 12.7 10.0-14.5 % Platelet Count 116 L 130-400 10^3/uL Mean Platelet Volume 11.2 H 7.4-10.4 FL Immature Granulocyte % (Auto) 0 % Neutrophils (%) (Auto) 63 42-75 % Lymphocytes (%) (Auto) 17 12-44 % Monocytes (%) (Auto) 11 0-12 % Eosinophils (%) (Auto) 8 0-10 % Basophils (%) (Auto) 1 0-10 % Neutrophils # (Auto) 4.2 1.8-7.8 X 10^3 Lymphocytes # (Auto) 1.2 1.0-4.0 X 10^3 Monocytes # (Auto) 0.7 0.0-1.0 X 10^3 Eosinophils # (Auto) 0.6 H 0.0-0.3 10^3/uL Basophils # (Auto) 0.0 0.0-0.1 10^3/uL Immature Granulocyte # (Auto) 0.0 0.0-0.1 10^3/uL Prothrombin Time 13.4 12.2-14.7 SEC INR Comment 1.0 0.8-1.4 Activated Partial Thromboplast Time 29 24-35 SEC Sodium Level 140 135-145 MMOL/L Potassium Level 4.0 3.6-5.0 MMOL/L Chloride Level 103 98-107 MMOL/L Carbon Dioxide Level 27 21-32 MMOL/L Anion Gap 10 5-14 MMOL/L Blood Urea Nitrogen 21 H 7-18 MG/DL Creatinine 0.73 0.60-1.30 MG/DL Estimat Glomerular Filtration Rate > 60 BUN/Creatinine Ratio 29 Glucose Level 96 70-105 MG/DL Calcium Level 9.1 8.5-10.1 MG/DL Corrected Calcium 9.3 8.5-10.1 MG/DL Magnesium Level 2.0 1.6-2.4 MG/DL Total Bilirubin 0.5 0.1-1.0 MG/DL Aspartate Amino Transf (AST/SGOT) 25 5-34 U/L Alanine Aminotransferase (ALT/SGPT) 23 0-55 U/L Alkaline Phosphatase 74 40-136 U/L Troponin I < 0.30 <0.30 NG/ML Pro-B-Type Natriuretic Peptide 397.7 H <75.0 PG/ML Total Protein 5.8 L 6.4-8.2 GM/DL Albumin 3.8 3.2-4.5 GM/DL Glucometer 93 70-110 MG/DL Urine Color YELLOW Urine Clarity CLEAR Urine pH 6.0 5-9 Urine Specific Ralston 1.010 L 1.016-1.022 Urine Protein NEGATIVE NEGATIVE Urine Glucose (UA) NEGATIVE NEGATIVE Urine Ketones NEGATIVE NEGATIVE Urine Nitrite NEGATIVE NEGATIVE Urine Bilirubin NEGATIVE NEGATIVE Urine Urobilinogen 1.0 < = 1.0 MG/DL Urine Leukocyte Esterase NEGATIVE NEGATIVE Urine RBC (Auto) 1+ H NEGATIVE Urine RBC 0-2 /HPF Urine WBC 0-2 /HPF Urine Crystals NONE /LPF Urine Bacteria NEGATIVE /HPF Urine Casts PRESENT /LPF Urine Hyaline Casts 5-10 H /LPF Urine Mucus MODERATE H /LPF Urine Culture Indicated NO My Orders Orders - WANDA THAKKAR MD Cbc With Automated Diff (01/28/21 16:19) Protime With Inr (01/28/21 16:19) Partial Thromboplastin Time (01/28/21 16:19) Comprehensive Metabolic Panel (01/28/21 16:19) Troponin I Fs (01/28/21 16:19) Ua Culture If Indicated (01/28/21 16:19) Chest 1 View Ap/Pa Only (01/28/21 16:19) Ekg Tracing (01/28/21 16:19) Accucheck Stat ONCE (01/28/21 16:19) Ed Iv/Invasive Line Start (01/28/21 16:19) Vital Signs Stroke Patient Q15M (01/28/21 16:19) Ct Head Wo-R/O Stroke (01/28/21 16:19) O2 (01/28/21 16:19) Monitor-Rhythm Ecg Trace Only (01/28/21 16:19) Dysphagia Screening Tool (01/28/21 16:19) Magnesium (01/28/21 16:21) Probnp Fs (01/28/21 16:21) Ct Angio Head/Neck (01/28/21 17:11) Dexamethasone Injection (Decadron Inje (01/28/21 17:12) Iohexol Injection (Omnipaque 350 Mg/Ml 1 (01/28/21 17:15) Received Contrast (Hold Metformin- Contr (01/28/21 17:15) Sodium Chloride Flush (Catheter Flush Sy (01/28/21 17:15) Ns (Ivpb) (Sodium Chloride 0.9% Ivpb Bag (01/28/21 17:15) Medications Given in ED Current Medications Medications Dose Ordered Sig/Kalpana Route Start Time Stop Time Status Last Admin Dose Admin Iohexol 85 ml ONCE ONCE IV 01/28/21 17:15 01/28/21 17:16 DC 01/28/21 17:42 85 ML Sodium Chloride 10 ml NEEDED PRN IV 01/28/21 17:15 01/28/21 18:59 DC 01/28/21 17:42 10 ML Sodium Chloride 100 ml ONCE ONCE IV 01/28/21 17:15 01/28/21 17:16 DC 01/28/21 17:42 100 ML Vital Signs/I&O 01/28/21 01/28/21 16:19 18:50 Temp 36.5 36.5 Pulse 73 86 Resp 20 20 B/P (MAP) 126/87 (100) 121/84 (100) Pulse Ox 96 96 O2 Delivery Room Air Progress Progress Note #1: Progress Note obtain labs and stroke CT head along with ECG and cardiac enzymes. Will check in with [facility] Neurologist coal gasification technician for stroke once scan of head is done. Initial NIHSS is 4 with 2 off each for left arm and left leg drifting down to bed. Place on cardiac equipment monitor phototypesetting with his complaint of having atrial fibrillation or flutter when he was at . Also with his recurrent complaints of left-sided weakness and difficulty speaking and swallowing today. His initial telemetry monitoring shows sinus rhythm with a heart rate in the 70s. Differential diagnosis includes acute stroke, TIA, seizure, brain swelling or bleeding from intracranial mass Progress Note #2: Time: 16:39 Progress Note Radiologist called to discuss the CT head and that no intracranial hemorrhage or acute ischemia was seen. Compared to the previous CT scan of his head from June 2020 the vasogenic edema and midline shift seen at that time has resolved. Labs appear stable without acute significant abnormality on his CBC or chemistry to account for his symptoms. 1640: Placed to neurology stroke line and spoke with OMID Henry, and he connected me with Dr. Lamb, the on-call stroke neurologist for today. She was familiar with the patient as he had just left the facility on Friday. She felt that this was likely more due to tumor on the right side of his brain and possibly seizure type activity. With his recurrent symptoms being more severe and persistent she did feel that he could come to and they could look at repeating an MRI possibly getting an echocardiogram and EEG as well. As of 1656 he was accepted to for transfer but she thought that he might be better served on a medicine service and consult neurology. The transfer center would do some checking and call me back. 1715 I updated the patient and family about consult to stroke neurologist as well as the plan for admission. When reviewing the results with the patient and family they did note that he was having worsening symptoms of his left-sided weakness as well as having some facial droop and difficulty swallowing now. I called the stroke transfer line back and spoke with OMID Henry, and advised him of the worsening symptoms. He stated that he had just spoke with Dr. Lamb and she wanted a CT angiogram to ensure there was no large vessel occlusion. I will give a dose of Decadron 10 mg IV in case his symptoms might be related to swelling since he has had similar problem in past with that. 1755 patient symptoms continue to fluctuate while waiting on the CT angiogram results. When the patient came back from radiology I called and updated the transfer line. The images had also been sent so neurology and providers could look at the images directly. [address] angiogram was read out as no large vessel occlusion seen. I called back to the stroke line and spoke with Carl RN. He stated that the accepting physician would now be Dr. Carr. Dr. Lamb still had no recommendations for the patient's fluctuating symptoms. 1834 patient received a bed assignment at [facility]. Will transfer patient by EMS. Initial ECG Impression Date: Jan 28, 2021 Initial ECG Impression Time: 16:35 Initial ECG Rate: 67 Initial ECG Rhythm: Normal Sinus Initial ECG Comparisson: Unchanged Comment Normal sinus rhythm with a heart rate of 67 bpm. MO interval 177 ms. Borderline right axis deviation. QT interval 384 ms with a QTc interval of 406 ms. He has no acute ST elevation. This appears similar to prior tracings in the system. Diagnostic Imaging Diagonstic Imaging: CT Plain Films/CT/US/NM/MRI: head Comments [facility], [place] NAME: NIKI HERNANDEZ [facility] REC#: [id number] PT STATUS: REG ER : 1955 PHYSICIAN: WANDA THAKKAR MD ADMIT DATE: 01/28/21/ER FS Signed Date of Exam:01/28/21 CT HEAD WO-R/O STROKE PROCEDURE: CT head w/o contrast, r/o stroke. TECHNIQUE: Multiple contiguous axial images were obtained through the brain without the use of intravenous contrast. Auto Exposure Controls were utilized during the CT exam to meet ALARA standards for radiation dose reduction. INDICATION: Left-sided weakness. Slurred speech. Facial droop. History of brain cancer and tumor removal x2. COMPARISON: CT head without contrast 07/02/2020. FINDINGS: Postoperative findings of a right frontotemporal craniotomy and resection bed in the right temporal lobe. There has been marked interval improvement of the vasogenic edema throughout the right cerebral hemisphere compared to the prior exam. No CT evidence of an acute territorial infarction. No new foci of intracranial edema. No intracranial hemorrhage or mass effect and no acute osseous finding. Visualized paranasal sinuses and mastoids are unremarkable. No hydrocephalus or extra-axial fluid collection. IMPRESSION: 1. Postoperative changes in the right temporal lobe. 2. Marked interval improvement of the previously seen vasogenic edema. There remains low-attenuation throughout much of the right cerebral hemisphere but it is markedly improved. No midline shift. 3. No intracranial hemorrhage. No findings suspicious for an acute territorial infarction. Findings discussed with Dr. Wanda Thakkar at 4:40 PM on 01/28/2021. Dictated by: Dictated on workstation # [id number] Dict: 01/28/21 1632 Trans: 01/28/211715 [facility] [id number] Interpreted by: ANUJA ARCE MD Electronically signed by: ANUJA ARCE MD 01/28/211715 Diagonstic Imaging: Xray Plain Films/CT/US/NM/MRI: chest Comments [facility] [place] NAME: NIKI HERNANDEZ [facility] REC#: [id number] PT STATUS: REG ER : 1955 PHYSICIAN: WANDA THAKKAR MD ADMIT DATE: 01/28/21/ER FS Signed Date of Exam:01/28/21 CHEST 1 VIEW AP/PA ONLY INDICATION: Left weakness and history of cancer. COMPARISON: Prior examination from 09/08/2019. FINDINGS: Heart size is normal. There is a soft tissue density in the left upper lobe. There is no pleural effusion or pneumothorax. The mediastinum is unremarkable. IMPRESSION: Soft tissue density in the left upper lobe. While this may be infiltrate or atelectasis, the possibility of underlying residual or recurrent mass cannot be excluded. Recommend further evaluation with contrast-enhanced CT chest. Dictated by: Dictated on workstation # [id number] Dict: 01/28/21 1655 Trans: 01/28/211721 [facility] [id number] Interpreted by: DAVID QUINN MD Electronically signed by: DAVID QUINN MD 01/28/211721 Diagonstic Imaging: CT (CT angiogram head and neck) Plain Films/CT/US/NM/MRI: head (and neck) Comments [facility] [place] [place] NAME: NIKI HERNANDEZ [facility] REC#: [id number] PT STATUS: REG ER : 1955 PHYSICIAN: WANDA THAKKAR MD ADMIT DATE: 01/28/21/ER FS Draft Date of Exam:01/28/21 CT ANGIO HEAD/NECK PROCEDURE: CT angiography of the head and CT angiography of the neck with and without contrast. TECHNIQUE: Contiguous noncontrast images were obtained from the skull base through the vertex. After intravenous contrast administration, helical CT angiography of the neck was performed. Source data was reformatted into 3D MIP projections. Delayed post contrast acquisition was also obtained. Auto Exposure Controls were utilized during the CT exam to meet ALARA standards for radiation dose reduction. INDICATION: Left weakness and dysphasia/aphasia. FINDINGS: There is a normal three-vessel branching pattern arising from the aortic arch. Carotid and vertebral arteries are widely patent to the neck. No stenosis or intimal abnormality is identified. There is no evidence of contrast extravasation or pseudoaneurysm. Within the head, anterior, middle and posterior cerebral arteries demonstrate normal opacification without large vessel occlusion. No filling defect, stenosis or aneurysm is identified. Surgical findings in right temporal lobe are again noted. IMPRESSION: No CTA evidence of great vessel abnormality within the head or neck. Dictated on workstation # [id number] Dict: 01/28/21 1754 Trans: 01/28/21 1801 [facility] [id number] Interpreted by: MENDY HUGGINS MD Electronically signed by: CT Read Date: Jan 28, 2021 CT Read Time: 16:39 CT Results/Progress Notes Verbally discussed with radiologist that the CT head does not show any acute intracranial hemorrhage or ischemia. Compared to Jun 2020 CT the Vasogenic edema and midline shift seen then has resolved. CVA/SNYCOPE: ECG, Tpa Considered (ruled out with fluctuating symptoms, d/w [facility] Stroke Neurologist) Critical Care Note Critical Care Total Time (minutes) 75 minutes Progress 75 minutes of critical care time was spent with the patient in direct of him. This time excludes separately billable procedures. Time was spent obtaining history from patient, family, medical records, ordering test and reviewing results, ordering interventions and reviewing response, discussion with consultants, documentation in the chart. Patient was at imminent risk of neurologic compromise and required constant direct care. Departure Impression Primary Impression: Acute left-sided muscle weakness Additional Impressions: Dysphagia Qualified Codes: R13.10 - Dysphagia, unspecified Dysarthria Paroxysmal atrial flutter Disposition: XF SHT-TRM HOSP Condition: Critical Transfer Transfer Reason: Exceeds level of care (Neurology and Oncology, Continuity of Care) Time Spoke to Accepting Phy: 16:57 Transfer Progress Notes 1656 d/w Dr. Lamb with Neurology/Stroke team. She was familiar with pt from recent admit as he was just discharge on 01/27. She felt it was not a stroke based on testing from but with his recurrent symptoms likely due to tumor and changes in the right side of his brain from cancer. She did recommend having him come to the hospital for MRI and echocardiogram as well as EEG. They thought that he might be having some atypical seizure activity causing his symptoms. She did recommend having a CT angiogram done to make sure there is no large vessel occlusion. 1714 notified OMID Henry, at the transfer center about his symptoms worsening and having facial droop now with dysphagia and increased left-sided weakness again. He stated he would pass out on the Dr. Lamb but they still needed the CT angiogram to evaluate for stroke and large vessel occlusion. 1754 pt returned from radiology and imaging sent to and Radiologist. 1811 Updated OMID Henry, at transfer center about CT angiogram not showing any acute large vessel occlusion. He stated that Dr. Carr would be the accepting doctor and would call back once a bed assignment was available. 1834 [facility] called back with bed assignment. Pt continues to have fluctuating symptoms of left sided weakness, facial droop and dysphagia with dysarthria. Family concerned that he did not get his Celebrex while at so they will take his home med with them tomorrow when they go up to see him. Apparently it is non formulary so they do not have it at . He takes that to treat for swelling around his tumor and to help prevent seizures and left sided weakness symptoms. He did get a single dose of Decadron here in case swelling/edema was contributing to his symptoms. Transfer Facility: [facility] Method of Transfer: EMS Departure-Patient Inst. Referrals: SELF,LIBORIO DE JESUS (PCP/Family) Primary Care Physician WANDA THAKKAR MD Jan 28, 2021 16:25
[2021-01-28 16:35] LABS: PROTHROMBIN TIME PATIENT 13.4 SEC (12.2-14.7)
[2021-01-28 16:43] LABS: BUN/CREATININE RATIO 29; CARBON DIOXIDE 27 MMOL/L (21-32); CHLORIDE 103 MMOL/L (98-107); CREATININE SERUM 0.73 MG/DL (0.60-1.30); GFR ESTIMATED > 60; GLUCOSE 96 MG/DL (70-105); SODIUM 140 MMOL/L (135-145)
[2021-01-28 16:44] LABS: ALANINE AMINOTRANSFERASE 23 U/L (0-55); ALBUMIN 3.8 GM/DL (3.2-4.5); ALKALINE PHOSPHATASE 74 U/L (40-136); BILIRUBIN,TOTAL 0.5 MG/DL (0.1-1.0); CALCIUM 9.1 MG/DL (8.5-10.1); TOTAL PROTEIN 5.8 GM/DL (6.4-8.2)
--- NOTE | 2021-01-28 16:45 | Diagnostic Imaging Report ---
PROCEDURE: CT head w/o contrast, r/o stroke. TECHNIQUE: Multiple contiguous axial images were obtained through the brain without the use of intravenous contrast. Auto Exposure Controls were utilized during the CT exam to meet ALARA standards for radiation dose reduction. INDICATION: Left-sided weakness. Slurred speech. Facial droop. History of brain cancer and tumor removal x2. COMPARISON: CT head without contrast 07/02/2020. FINDINGS: Postoperative findings of a right frontotemporal craniotomy and resection bed in the right temporal lobe. There has been marked interval improvement of the vasogenic edema throughout the right cerebral hemisphere compared to the prior exam. No CT evidence of an acute territorial infarction. No new foci of intracranial edema. No intracranial hemorrhage or mass effect and no acute osseous finding. Visualized paranasal sinuses and mastoids are unremarkable. No hydrocephalus or extra-axial fluid collection. IMPRESSION: 1. Postoperative changes in the right temporal lobe. 2. Marked interval improvement of the previously seen vasogenic edema. There remains low-attenuation throughout much of the right cerebral hemisphere but it is markedly improved. No midline shift. 3. No intracranial hemorrhage. No findings suspicious for an acute territorial infarction. Findings discussed with Dr. Wale Chopra at 4:40 PM on 01/28/2021. Dictated by: Dictated on workstation # [id number]
--- NOTE | 2021-01-28 17:05 | Diagnostic Imaging Report ---
INDICATION: Left weakness and history of cancer. COMPARISON: Prior examination from 09/08/2019. FINDINGS: Heart size is normal. There is a soft tissue density in the left upper lobe. There is no pleural effusion or pneumothorax. The mediastinum is unremarkable. IMPRESSION: Soft tissue density in the left upper lobe. While this may be infiltrate or atelectasis, the possibility of underlying residual or recurrent mass cannot be excluded. Recommend further evaluation with contrast-enhanced CT chest. Dictated by: Dictated on workstation # [id number]
[2021-01-28] MEDS ORDERED: CATHETER FLUSH 10 ML SYR IV PRN (17:15)
[2021-01-28] MEDS ORDERED: IOHEXOL 350 MG/ML 100 ML (OMNIPAQUE 350) VIAL IV ONE (17:15)
[2021-01-28] MEDS ORDERED: NS 100 ML (IVPB) BAG IV ONE (17:15)
[2021-01-28] MEDS ORDERED: HOLD METFORMIN - RECEIVED CONTRAST 20 ML VIAL IV SCH (17:15)
--- NOTE | 2021-01-28 18:02 | Diagnostic Imaging Report ---
PROCEDURE: CT angiography of the head and CT angiography of the neck with and without contrast. TECHNIQUE: Contiguous noncontrast images were obtained from the skull base through the vertex. After intravenous contrast administration, helical CT angiography of the neck was performed. Source data was reformatted into 3D MIP projections. Delayed post contrast acquisition was also obtained. Auto Exposure Controls were utilized during the CT exam to meet ALARA standards for radiation dose reduction. INDICATION: Left weakness and dysphasia/aphasia. There is a normal three-vessel branching pattern arising from the aortic arch. Carotid and vertebral arteries are widely patent to the neck. No stenosis or intimal abnormality is identified. There is no evidence of contrast extravasation or pseudoaneurysm. Within the head, anterior, middle and posterior cerebral arteries demonstrate normal opacification without large vessel occlusion. No filling defect, stenosis or aneurysm is identified. Surgical findings in right temporal lobe are again noted. IMPRESSION: No CTA evidence of great vessel abnormality within the head or neck. Dictated by: Dictated on workstation # [id number]
[2021-01-28 18:25] LABS: BACTERIA,URINE NEGATIVE /HPF; BILIRUBIN,URINE NEGATIVE (NEGATIVE); CLARITY,URINE CLEAR; COLOR,URINE YELLOW; GLUCOSE, URINE (UA) NEGATIVE (NEGATIVE); KETONES,URINE NEGATIVE (NEGATIVE); LEUKOCYTE ESTERASE ,URINE NEGATIVE (NEGATIVE); NITRITE,URINE NEGATIVE (NEGATIVE); PROTEIN,URINE NEGATIVE (NEGATIVE); RBC,URINE 0-2 /HPF; WBC,URINE 0-2 /HPF
[2021-01-28 18:50] VITALS: BP 121/84
== END 2021-01-28 18:58 | disposition short-term general hospital (02) ==
LOC: EDUNIT# 16:09 → ER FS 16:11
DX: R53.1 Weakness (principal); R13.10 Dysphagia, unspecified; I48.92 Unspecified atrial flutter; I25.2 Old myocardial infarction; I25.10 Atherosclerotic heart disease of native coronary artery without angina pectoris; I50.9 Heart failure, unspecified; Z87.442 Personal history of urinary calculi; Z77.22 Contact with and (suspected) exposure to environmental tobacco smoke (acute) (chronic); Z95.5 Presence of coronary angioplasty implant and graft; Z85.841 Personal history of malignant neoplasm of brain; Z88.8 Allergy status to other drugs, medicaments and biological substances
CPT/HCPCS: 36415; 70450; 70496; 70498; 71045; 80053; 81000; 82962; 83735; 83880; 84484; 85025; 85610; 85730; 93005; 93041; 96374